=== PATIENT | female | born 1975 | race Caucasian/White ===

== ENCOUNTER → 2020-11-07 17:52 | Outpatient (CLI) | payer MEDICARE, MEDICAID, SELFPAY ==
[2020-11-07 18:31] LABS: Basophils % 0.3 % (0.1-2.0); Eosinophils # 0.2 K/mm3 (0.0-0.4); Hematocrit 39.3 % (37.0-47.0); Hemoglobin 12.5 g/dL (12.2-16.2); Lymphocytes # 2.1 K/mm3 (0.7-4.5); Lymphocytes % 21.1 % (10-50); Mean Corpuscular HGB Conc 31.8 g/dL (31.8-35.4); Mean Corpuscular Hemoglobin 28.3 pg (27.0-31.2); Mean Corpuscular Volume 88.8 fl (81-99); Mean Platelet Volume 9.8 fl (7.4-10.4); Monocytes # 0.3 K/mm3 (0.1-1.0); Monocytes % 3.2 % (1.7-9.3); Neutrophils # 7.3 K/mm3 (1.8-7.8); Neutrophils % 73.3 % (37.0-80.0); Platelet Count 301 K/mm3 (142-424); Red Blood Count 4.43 M/mm3 (4.20-5.40); Red Cell Distribution Width 14.1 % (11.5-17.5); White Blood Count 9.9 K/mm3 (4.8-10.8)
[2020-11-07 18:56] LABS: Alanine Aminotransferase 24 U/L (12-78); Albumin/Globulin Ratio 1.4 (1.1-1.8); Alkaline Phosphatase 99 U/L (38-126); Anion Gap 15.6 mEq/L (5-15); Aspartate Amino Transferase 27 U/L (14-36); Bilirubin,Total 0.5 mg/dl (0.2-1.3); Blood Urea Nitrogen 25 mg/dl (7-17); Calcium 9.2 mg/dl (8.4-10.2); Carbon Dioxide 27 mmol/L (22.0-30.0); Chloride 97 mmol/L (98-107); Chol/HDL Ratio 4.5 (1-3.5); Cholesterol 207 mg/dl (140-200); Estimated Glomerular Filt Rate 68 ml/min (>60); GFR (African American) 82 ML/MIN (>60); Globulin 2.8 g/dL (1.3-3.2); Glucose 377 mg/dl (74-100); HDL Cholesterol 46 mg/dl (40-60); Potassium 4.6 mmoL/L (3.5-5.1); Sodium 135 mmol/L (136-145); Total Protein,Serum 6.8 g/dl (6.3-8.2); Triglycerides 263 mg/dl (30-150); VLDL Cholesterol 53 mg/dL (0-40)
[2020-11-07 19:07] LABS: Direct LDL Cholesterol 119.84 mg/dL (100-129)
[2020-11-07 19:09] LABS: Hemoglobin A1C 11.4 % (4.0-6.0)
[2020-11-07 19:26] LABS: Thyroid Stimulating Hormone 1.81 uIU/mL (0.465-4.68)
== END ==
PROVIDERS: Visit Provider Family Medicine
DX: E11.9 Type 2 diabetes mellitus without complications (principal); Z79.84 Long term (current) use of oral hypoglycemic drugs
CPT/HCPCS: 80053; 80061; 83036; 84439; 84443; 85025

== ENCOUNTER → 2020-11-18 13:17 | Outpatient (CLI) | payer MEDICARE, MEDICAID, SELFPAY ==
--- NOTE | 2020-11-18 13:17 | MM_ITS ---
PROCEDURE INFORMATION: Exam: MG Screening 3D Mammography Exam date and time: 11/18/2020 1:17 PM Age: 45 years old Clinical indication: Encounter for screening mammogram for malignant neoplasm of breast TECHNIQUE: Imaging protocol: Screening tomosynthesis and 2D mammography including computer-aided detection (CAD) when performed. COMPARISON: No relevant prior studies available. FINDINGS: MAMMOGRAPHY: Breast composition: The breast tissue is composed of scattered areas of fibroglandular density. Mass: None. Architectural distortion: None. Calcifications: No suspicious calcifications. Asymmetric density: None. Skin thickening: None. Axillary adenopathy: None. IMPRESSION: No mammographic evidence of malignancy. Annual screening is recommended unless otherwise clinically indicated. ASSESSMENT: BI-RADS Category 1: Negative
== END ==
PROVIDERS: PCP Family Medicine; Visit Provider Family Medicine
DX: Z12.31 Encounter for screening mammogram for malignant neoplasm of breast (principal)
CPT/HCPCS: 77063; 77067

== ENCOUNTER → 2021-01-28 17:58 | Outpatient (CLI) | payer MEDICARE, MEDICAID, SELFPAY ==
[2021-01-30 13:42] LABS: C-Peptide 6.5 ng/mL (1.1-4.4)
== END ==
PROVIDERS: Visit Provider Family Medicine
DX: E11.40 Type 2 diabetes mellitus with diabetic neuropathy, unspecified (principal); Z79.4 Long term (current) use of insulin
CPT/HCPCS: 83036; 84681

== ENCOUNTER → 2022-08-31 13:15 | Outpatient (CLI) | payer MEDICARE, MEDICAID, SELFPAY ==
[2022-08-31 18:15] LABS: Basophils % 0.4 % (0.1-2.0); Eosinophils # 0.2 K/mm3 (0.0-0.4); Eosinophils % 2.4 % (0.1-12.0); Hematocrit 41.4 % (37.0-47.0); Hemoglobin 13.1 g/dL (12.2-16.2); Lymphocytes # 2.2 K/mm3 (0.7-4.5); Lymphocytes % 23.7 % (10-50); Mean Corpuscular HGB Conc 31.7 g/dL (31.8-35.4); Mean Corpuscular Hemoglobin 29.4 pg (27.0-31.2); Mean Corpuscular Volume 92.9 fl (81-99); Mean Platelet Volume 10.5 fl (7.4-10.4); Monocytes # 0.4 K/mm3 (0.1-1.0); Monocytes % 4.5 % (1.7-9.3); Neutrophils # 6.5 K/mm3 (1.8-7.8); Neutrophils % 69.1 % (37.0-80.0); Platelet Count 254 K/mm3 (142-424); Red Blood Count 4.46 M/mm3 (4.20-5.40); Red Cell Distribution Width 13.1 % (11.5-17.5); White Blood Count 9.4 K/mm3 (4.8-10.8)
[2022-08-31 18:18] LABS: Hemoglobin A1C 12.2 % (4.0-6.0)
[2022-08-31 18:22] LABS: Alanine Aminotransferase 16 U/L (12-78); Albumin Level 3.6 g/dl (3.5-5.0); Albumin/Globulin Ratio 1.2 (1.1-1.8); Alkaline Phosphatase 78 U/L (38-126); Anion Gap 9.6 mEq/L (5-15); Aspartate Amino Transferase 20 U/L (14-36); Bilirubin,Total 0.4 mg/dl (0.2-1.3); Blood Urea Nitrogen 26 mg/dl (7-17); Calcium 8.6 mg/dl (8.4-10.2); Carbon Dioxide 27 mmol/L (22.0-30.0); Chloride 100 mmol/L (98-107); Chol/HDL Ratio 3.8 (1-3.5); Cholesterol 147 mg/dl (140-200); Estimated Glomerular Filt Rate 53 ml/min (>60); GFR (African American) 64 ML/MIN (>60); Globulin 2.9 g/dL (1.3-3.2); Glucose 136 mg/dl (74-100); HDL Cholesterol 39 mg/dl (40-60); Potassium 3.6 mmoL/L (3.5-5.1); Sodium 133 mmol/L (136-145); Total Protein,Serum 6.5 g/dl (6.3-8.2); Triglycerides 275 mg/dl (30-150); VLDL Cholesterol 55 mg/dL (0-40)
[2022-08-31 18:33] LABS: Direct LDL Cholesterol 76.22 mg/dL (100-129)
[2022-08-31 18:51] LABS: Thyroid Stimulating Hormone 2.35 uIU/mL (0.465-4.68)
== END ==
PROVIDERS: PCP Family Medicine; Visit Provider Family Medicine
DX: E78.5 Hyperlipidemia, unspecified (principal); E11.40 Type 2 diabetes mellitus with diabetic neuropathy, unspecified; M25.511 Pain in right shoulder; M25.512 Pain in left shoulder; Z79.84 Long term (current) use of oral hypoglycemic drugs; Z79.899 Other long term (current) drug therapy
CPT/HCPCS: 80053; 80061; 83036; 84443; 85025

== ENCOUNTER 2023-08-11 18:57 | Outpatient (CLI) | payer MEDICARE, SELFPAY ==
[2023-08-11 18:44] LABS: Albumin Level 3.8 g/dl (3.5-5.0); Albumin/Globulin Ratio 1.5 (1.1-1.8); Alkaline Phosphatase 75 U/L (38-126); Anion Gap 12.9 mEq/L (5-15); Bilirubin,Total 0.2 mg/dl (0.2-1.3); Blood Urea Nitrogen 43 mg/dl (7-17); Calcium 9.4 mg/dl (8.4-10.2); Carbon Dioxide 29 mmol/L (22.0-30.0); Chloride 101 mmol/L (98-107); Chol/HDL Ratio 5.2 (1-3.5); Cholesterol 181 mg/dl (140-200); Estimated Glomerular Filt Rate 44 ml/min (>60); GFR (African American) 53 ML/MIN (>60); Globulin 2.6 g/dL (1.3-3.2); Glucose 118 mg/dl (74-100); HDL Cholesterol 35 mg/dl (40-60); Potassium 3.9 mmoL/L (3.5-5.1); Sodium 139 mmol/L (136-145); Total Protein,Serum 6.4 g/dl (6.3-8.2); Triglycerides 282 mg/dl (30-150); VLDL Cholesterol 56 mg/dL (0-40)
[2023-08-11 18:55] LABS: Direct LDL Cholesterol 90.02 mg/dL (100-129)
[2023-08-11 19:14] LABS: Thyroid Stimulating Hormone 1.97 uIU/mL (0.465-4.68)
[2023-08-11 19:26] LABS: Alanine Aminotransferase 24 U/L (12-78); Aspartate Amino Transferase 35 U/L (14-36)
[2023-08-11 20:31] LABS: Hemoglobin A1C 9.4 % (4.0-6.0)
== END 2023-08-11 23:59 ==
LOC: LAB.DROPOF 18:57
PROVIDERS: PCP Family Medicine; Visit Provider Family Medicine
DX: E11.40 Type 2 diabetes mellitus with diabetic neuropathy, unspecified; F32.A Depression, unspecified; Z79.899 Other long term (current) drug therapy
CPT/HCPCS: 80053; 80061; 83036; 84443

== ENCOUNTER 2023-12-13 11:48 | Outpatient (CLI) | payer MEDICARE, SELFPAY ==
[2023-12-13 19:28] LABS: Basophils # 0.1 K/mm3 (0-0.2); Basophils % 0.5 % (0.1-2.0); Eosinophils # 0.3 K/mm3 (0.0-0.4); Eosinophils % 2.9 % (0.1-12.0); Hematocrit 40.9 % (37.0-47.0); Hemoglobin 12.6 g/dL (12.2-16.2); Lymphocytes % 20.9 % (10-50); Mean Corpuscular HGB Conc 30.7 g/dL (31.8-35.4); Mean Corpuscular Hemoglobin 27.9 pg (27.0-31.2); Mean Corpuscular Volume 90.8 fl (81-99); Mean Platelet Volume 10.9 fl (7.4-10.4); Monocytes # 0.4 K/mm3 (0.1-1.0); Monocytes % 4.5 % (1.7-9.3); Neutrophils # 6.8 K/mm3 (1.8-7.8); Neutrophils % 71.1 % (37.0-80.0); Platelet Count 252 K/mm3 (142-424); Red Blood Count 4.51 M/mm3 (4.20-5.40); Red Cell Distribution Width 14.7 % (11.5-17.5); White Blood Count 9.5 K/mm3 (4.8-10.8)
[2023-12-13 19:38] LABS: Alanine Aminotransferase 18 U/L (12-78); Albumin Level 3.5 g/dl (3.5-5.0); Albumin/Globulin Ratio 1.3 (1.1-1.8); Alkaline Phosphatase 131 U/L (38-126); Anion Gap 14.6 mEq/L (5-15); Aspartate Amino Transferase 20 U/L (14-36); Bilirubin,Total 0.3 mg/dl (0.2-1.3); Blood Urea Nitrogen 29 mg/dl (7-17); Calcium 9.1 mg/dl (8.4-10.2); Carbon Dioxide 25 mmol/L (22.0-30.0); Chloride 103 mmol/L (98-107); Chol/HDL Ratio 4.8 (1-3.5); Cholesterol 190 mg/dl (140-200); Estimated Glomerular Filt Rate 24 ml/min (>60); GFR (African American) 29 ML/MIN (>60); Globulin 2.7 g/dL (1.3-3.2); Glucose 199 mg/dl (74-100); HDL Cholesterol 40 mg/dl (40-60); Potassium 4.6 mmoL/L (3.5-5.1); Sodium 138 mmol/L (136-145); Total Protein,Serum 6.2 g/dl (6.3-8.2); Triglycerides 280 mg/dl (30-150); VLDL Cholesterol 56 mg/dL (0-40)
[2023-12-13 19:48] LABS: Direct LDL Cholesterol 85.06 mg/dL (100-129)
[2023-12-13 20:11] LABS: Hemoglobin A1C 8.9 % (4.0-6.0)
[2023-12-13 20:20] LABS: Thyroid Stimulating Hormone 1.28 uIU/mL (0.465-4.68)
== END 2023-12-13 23:59 | disposition home or self-care (01) ==
LOC: LAB.DROPOF 12-14 11:49
PROVIDERS: PCP Family Medicine; Visit Provider Family Medicine
DX: E11.40 Type 2 diabetes mellitus with diabetic neuropathy, unspecified (principal)
CPT/HCPCS: 80050; 80053; 80061; 83036; 84443; 85025

== ENCOUNTER 2024-01-12 16:30 | Outpatient (CLI) | payer MEDICARE, SELFPAY ==
[2024-01-12 19:37] LABS: Alanine Aminotransferase 20 U/L (12-78); Albumin Level 3.9 g/dl (3.5-5.0); Albumin/Globulin Ratio 1.2 (1.1-1.8); Alkaline Phosphatase 147 U/L (38-126); Anion Gap 10.6 mEq/L (5-15); Aspartate Amino Transferase 24 U/L (14-36); Bilirubin,Total 0.5 mg/dl (0.2-1.3); Blood Urea Nitrogen 22 mg/dl (7-17); Calcium 9.5 mg/dl (8.4-10.2); Carbon Dioxide 29 mmol/L (22.0-30.0); Chloride 104 mmol/L (98-107); Estimated Glomerular Filt Rate 67 ml/min (>60); GFR (African American) 81 ML/MIN (>60); Globulin 3.3 g/dL (1.3-3.2); Glucose 194 mg/dl (74-100); Potassium 4.6 mmoL/L (3.5-5.1); Sodium 139 mmol/L (136-145); Total Protein,Serum 7.2 g/dl (6.3-8.2)
== END 2024-01-12 23:59 | disposition home or self-care (01) ==
LOC: LAB.DROPOF 01-13 12:51
PROVIDERS: PCP Family Medicine; Visit Provider Family Medicine
DX: E11.9 Type 2 diabetes mellitus without complications (principal); E11.40 Type 2 diabetes mellitus with diabetic neuropathy, unspecified; G62.9 Polyneuropathy, unspecified; E78.5 Hyperlipidemia, unspecified
CPT/HCPCS: 80053; 83036

== ENCOUNTER 2024-02-14 12:01 | Outpatient (CLI) | payer MEDICARE, MEDICAID, SELFPAY ==
--- NOTE | 2024-02-14 | CA_ITS ---
APPROVED REPORT Exam: Pharmacologic Technologist: Marilyn Davis Ht: 5 ft 5 in Wt: 248 lbs BSA: 2.17 m2 HR: 75 bpm BP: 144/68 mmHg Indications: ischemia, Chest pain, Abnormal EKG Medical History Medications: Atorvastatin,,,,, Metoprolol Succinate,,,,, Lyrica,,,,, HCTZ,,,,, Glipizide,,,,, Plavix,,,,, DulOXETINE,,,,, Janumet,,,,, BuPROPION,,,,, Hydrocodone-Acetaminophen,,,,, Mounjaro,,,,, Latrel,,,,, Stress Test Details Test: LEXISCAN HR Resting HR: 75 bpm Max Heart Rate (APMHR): 172 bpm Max HR Achieved: 87 bpm Target HR (85% APMHR): 146 bpm % of APMHR: 51 Recovery HR: 82 bpm BP Resting BP: 144.0/68.0 mmHg Max BP: 144.0/68.0 mmHg Recovery BP: 140.0/67.0 mmHg ECG Resting ECG: NSR, T-wave changes at baseli Stress ECG: No significant ST changesne Arrhythmia: None Clinical Exercise duration: 04:01 min Highest Stage Achieved: Exercise capacity: 1.0 METs Stress ECG Conclusion Symptoms: Shortness of air, chest tightness Arrhythmias/Ectopy: None ST-T Changes: No significant ST changes Conclusion: Unremarkable Lexiscan stress test. Myoview images reported separately. Test Summary REST . . . . . . . Resting REST 11:36 . . 75 . 144/ 68 . . Stage 1 . . . . . . . Myoview Injected Stage 1 . . . . . . . chest tightness Stage 1 01:00 . . 85 . . . . Stage 2 01:00 . . 82 . 142/ 66 . . Stage 3 01:00 . . 83 . 142/ 65 . . Stage 4 01:00 . . 82 . 138/ 65 . . Stage 4 01:01 . . 81 . 138/ 65 . Stop exercise at 04:01 RECOVERY 01:00 . . 80 . . . . RECOVERY 02:00 . . 80 . 139/ 67 . . RECOVERY 02:24 . . 82 . 140/ 67 . . Electronically signed by : Nichelle Loomis MD 02/15/2024 00:51:42
--- NOTE | 2024-02-14 12:05 | NM_ITS ---
APPROVED REPORT Exam: Nuclear Stress Test Indication: chest pain..soa Patient Location: Outpatient Stress Tech: Marilyn Davis NM Tech:Belinda Murray, GARETHT, RT (R)(N) Ht: 5 ft 5 in Wt: 240 lbs Bra Size: 42ddd HR: 75 bpm BP: 144/68 mmHg BSA: 2.14 m2 Rhythm: NSR TID: 1.08 BMI: 39.9 History: chest pain..soa Procedure: Patient received 0.4 mg of intravenous Lexiscan, resting heart rate 75 bpm, resting blood pressure 144/68 mmHg, with Lexiscan maximum heart rate achieved was 87 bpm which is 85 % of the maximum predicted heart rate and blood pressure was 144/68 mmHg. With Lexiscan, patient denied any complaint of chest pain. The patient was not able to lay on her abdomen for prone images. Cardiac Stress and Resting SPECT Images: Cardiac Stress and Resting SPECT images were obtained using technetium 99m Myoview 30.0 mCi stress and 10.76 mCi at rest. Technically difficult study due to significant soft tissue overlap with the cardiac borders. The patient is unable to lie on her abdomen. Therefore, prone stress imaging could not be performed. This may affect the diagnostic interpretation of the study findings. Resting and stress imaging in supine positions demonstrate medium sized, moderate, predominantly fixed perfusion defect in the basal to mid anterior LV patrick. There is a small region of reversibility towards the anteroapical region. Gated imaging demonstrates low-normal global and regional LV systolic function. LVEF is calculated at 50%. Conclusion: Technically difficult study. Medium sized, moderate, predominantly fixed perfusion defect in the basal to mid anterior LV patrick. There is a small region of reversibility towards the anteroapical region. Findings are suggestive of partial reversible ischemia. Gated imaging demonstrates low-normal global and regional LV systolic function. LVEF is calculated at 50%. In the setting of young age and technically difficult study, further evaluation may be suggested with non-invasive testing (i.e. CCTA) first prior to proceeding with invasive coronary angiography Electronically signed by : Nichelle Loomis MD 02/15/2024 00:55:27
[2024-02-14] MEDS: SODIUM CHLORIDE 0.9% 10ML SYR (RAD ONLY) 10 ML IV ×2 (14:39)
[2024-02-14] MEDS: ISOTOPE MYOVIEW (PER STUDY) 1 DOSE IV (14:39)
[2024-02-14] MEDS: REGADENOSON 0.4MG/5ML SYRINGE 0.4 MG IV (14:39)
== END 2024-02-14 23:59 | disposition home or self-care (01) ==
LOC: RAD 12:03
PROVIDERS: PCP Family Medicine; Visit Provider Nurse Practitioner Family
DX: R07.89 Other chest pain (principal); R06.00 Dyspnea, unspecified; I50.9 Heart failure, unspecified
CPT/HCPCS: 78452; 93017; 93018; A9502; J2785

== ENCOUNTER 2024-09-18 15:58 | Outpatient (CLI) | payer MEDICARE, MEDICAID, SELFPAY ==
[2024-09-18 19:17] LABS: Creatinine,Urine Random 40 mg/dL (Not Estab.); Microalbumin/Creatinine Ratio 1010.5
[2024-09-18 19:33] LABS: Chloride 109 mmol/L (98-107); Potassium 4.7 mmoL/L (3.5-5.1); Sodium 139 mmol/L (136-145)
[2024-09-18 19:35] LABS: Blood Urea Nitrogen 23 mg/dl (7-17); Estimated Glomerular Filt Rate 53 ml/min (>60); GFR (African American) 64 ML/MIN (>60)
[2024-09-18 19:36] LABS: Alanine Aminotransferase 16 U/L (12-78); Alkaline Phosphatase 126 U/L (38-126); Anion Gap 11.7 mEq/L (5-15); Aspartate Amino Transferase 21 U/L (14-36); Bilirubin,Total 0.2 mg/dl (0.2-1.3); Calcium 9.3 mg/dl (8.4-10.2); Carbon Dioxide 23 mmol/L (22.0-30.0); Cholesterol 199 mg/dl (140-200); Glucose 115 mg/dl (74-100); Total Protein,Serum 6.7 g/dl (6.3-8.2); Triglycerides 232 mg/dl (30-150); VLDL Cholesterol 46 mg/dL (0-40)
[2024-09-18 19:37] LABS: Chol/HDL Ratio 4.2 (1-3.5); HDL Cholesterol 47 mg/dl (40-60)
[2024-09-18 19:47] LABS: Direct LDL Cholesterol 102.31 mg/dL (100-129)
[2024-09-18 20:01] LABS: 25-OH Vitamin D, Total < 12.8 ng/mL (30-100)
[2024-09-18 20:07] LABS: Thyroid Stimulating Hormone 1.22 uIU/mL (0.465-4.68)
[2024-09-18 21:21] LABS: Albumin Level 3.9 g/dl (3.5-5.0); Albumin/Globulin Ratio 1.4 (1.1-1.8); Globulin 2.8 g/dL (1.3-3.2)
== END 2024-09-18 23:59 | disposition home or self-care (01) ==
LOC: LAB.DROPOF 09-19 11:08
PROVIDERS: PCP Family Medicine; Visit Provider Family Medicine
DX: E55.9 Vitamin D deficiency, unspecified (principal); E11.40 Type 2 diabetes mellitus with diabetic neuropathy, unspecified; Z79.84 Long term (current) use of oral hypoglycemic drugs; E78.5 Hyperlipidemia, unspecified
CPT/HCPCS: 80053; 80061; 82043; 82306; 82570; 84443

== ENCOUNTER 2025-05-09 09:00 | Outpatient (CLI) | payer MEDICARE, MEDICAID, SELFPAY ==
--- OUTSIDE RECORDS SUMMARY | 2021-07-08 05:00 | XMS_ITS | Encounter Summary ---
Author Organization [place] [address] Care Team Providers Care Software Support Analyst Name Role Phone Lakshmi Hinton MD Primary Care Provider [phone] Encounter Details Date Type Department Care Team (Late st Contact Info) Description 07/08/2021 5:00 AM [facility] Encounter [facility] Referral Lab 1 [place], [place] [id number] Hitesh Curtis MD Social History Tobacco Use Types Packs/Day Years Used Date Smoking Tobacco: Never Passive Smoke Exposure: Current Smokeless Tobacco: Never Comments:AROUND SECOND HAND SMOKE Alcohol Use Standard Drinks/Week Comments No 0 (1 standard drink = 0.6 oz pur e alcohol) [facility] Utilities Answer Date Recorded In the past 12 months has [employer], gas, oil, or water [employer] threatened to shut off services in your home? No 11/14/2024 Overall Financial Resource Strain (CARDIA) Answe r Date Recorded How hard is it for you to pa y for the very basics like food, housing, medical care, and heating? Not very hard 11/14/2024 PHQ-2 Answer Date Recorded PHQ-2 Total Score 0 11/14/2024 [facility] [place] of Occupat ional Health - Occupational Stress Questionnaire Answer Date Recorded Do you feel stress - tense, restless, nervous, or anxious, or unable to sleep at night because your mind is troubled all the time - these days? Only a little 11/14/2024 Exercise Vital Sign Answer Date Recorde d On average, how many days pe r week do you engage in moderate to strenuous exercise (like a brisk walk)? 0 days 11/14/2024 On average, how many minutes do you engage in exercise at this level? 0 min 11/14/2024 Hunger Vital Sign Answer Date Recorded Within the past 12 months, y ou worried that your food would run out before you got the money to buy more. Never true 11/15/19 25 Within the past 12 months, t he food you bought just didn't last and you didn't have money to get more. Never true 11/14/2024 PRAPARE - Transportation Answer Date Re corded In the past 12 months, has l ack of transportation kept you from medical appointments or from getting medications? No 05/25 In the past 12 months, has l ack of transportation kept you from meetings, work, or from getting things needed for daily living? No 06/19/2021 [facility] IP Transportation Answer D ate Recorded In the past 12 months, has l ack of reliable transportation kept you from medical appointments, meetings, work or from getting things needed for daily living? No 11/14/2024 Sexually Active Control Partners Comments Yes Male Comments No Sex and Gender Information Value Date Recorded Sex Assigned at Not on file Legal Sex Female 8:43 PM EDT Gender Identity Not on file Sexual Orientation Not on file COVID-19 Exposure Response Date Recorded In the last month, have you been in contact with someone who was confirmed or suspected to have Coronavirus / COVID-19? No / Unsure 08/14/2021 1:52 PM EDT documented as of this encounter Functional Status * Question Answer Date of Assessment Author Is the person deaf or does he/she have serious difficulty hearing? No 11/14/2024 5:08 PM EDT Mary Stern RN Is the person blind or does he/she have serious difficulty seeing even when wearing glasses? No 11/14/2024 5:08 PM EDT Mary Stern RN Does this person have seriou s difficulty walking or climbing stairs? No 11/14/2024 5:08 PM EDT Mary Stern RN Does this person have difficulty dressing or bathing? No 11/14/2024 5:08 PM Mary Medina RN * Is the person deaf or does he/she have serious difficulty hearing? Answer Date of Assessment Author No 06/21/2016 12:09 PM Joelel Hargrove RN * Is the person blind or does he/she have serious difficulty seeing even when wearing glasses? Answer Date of Assessment Author No 06/21/2016 12:09 PM Joelle Hargrove RN * Does this person have serious difficulty walking or climbing stairs? Answer Date of Assessment Author No 06/21/2016 12:09 PM Joelle Hargrove RN * Does this person have difficulty dressing or bathing? Answer Date of Assessment Author No 06/21/2016 12:09 PM Joelle Hargrove RN * Because of a physical, mental or emotional condition, does this person have difficulty doing errands alone such as visiting a doctor's office or shopping? Answer Date of Assessment Author No 06/21/2016 12:09 PM Joelle Hargrove RN * Question Answer Date of Assessment Author Little interest or pleasure in doing things 0 11/14/2024 10:10 AM Romana Velasco RN Feeling down, depressed, or hopeless 0 11/14/2024 10:10 AM Romana Velasco RN PHQ-2 Total Score 0 11/14/2024 10:10 AM Romana Velasco RN Trouble falling or staying asleep, or sleeping too much 3 07/20/2023 10:40 AM Marlyn Sutton RN Feeling tired or having alfredo le energy 3 07/20/2023 10:40 AM Marlyn Sutton RN Poor appetite or overeating 3 07/20/2023 10 :40 AM Marlyn Sutton RN Feeling bad about yourself - or that you are a failure or have let yourself or your family down 1 07/20/2023 10:40 AM Marlyn Sutton RN Trouble concentrating on things, such as reading the newspaper or watching television 0 07/20/2023 10:40 AM Marlyn Sutton RN Moving or speaking so slowly that other people could have noticed. Or the opposite - being so fidgety or restless that you have been moving around a lot more than usual 0 07/20/2023 10:40 AM EST Marlyn Callahan RN Thoughts that you would be better off , or of hurting yourself in some way 0 07/20/2023 10:40 AM EST Marlyn Callahan RN * PHQ-9 Total Score Answer Date of Assessment Author 0 11/14/2024 10:10 AM EDT Romana Domínguez RN * PHQ-2 Total Score Answer Date of Assessment Author 0 11/14/2024 10:10 AM EDT Romana Domínguez RN documented as of this encounter Mental Status * Question Answer Entry Date Author Because of a physical, menta l or emotional condition, does this person have difficulty doing errands alone such as visiting a doctor's office or shopping? No 11/14/2024 5:08 PM EDT Mary Stern RN Because of a physical, menta l or emotional condition, does this person have serious difficulty concentrating, remembering or making decisions? No 11/14/2024 5:08 PM EDT Mary Stern RN * Because of a physical, mental or emotional condition, does this person have serious difficulty concentrating, remembering or making decisions? Answer Entry Date Author No 06/21/2016 12:09 PM EST Joelle Lawton RN documented in this encounter Plan of Treatment Upcoming Encounters Date Type Department Care Team (Late st Contact Info) Description 02/11/2026 2:15 PM EDT Office Visit [facility] [place] [address] [address] Dwayne Payan MD [address] [place] [address] documented as of this encounter Results * (ABNORMAL) CBC WITH DIFF (07/08/2021 5:00 AM EST) [facility] WBC 6.7 3.7 - 10.3 x10(3)/mcL 07/08/2021 8:44 AM EST [facility] RBC 3.02(L) 3.90 - 5.20 x10(6)/mcL 07/08/2021 8:44 AM EST [facility] Hgb 8.4(L) 11.2 - 15.7 g/dL 07/08/2021 8:44 AM EST [facility] Hct 27.5(L) 34.0 - 45.0 % 07/08/2021 8:44 AM EST [facility] MCV 91.1 80.0 - 100.0 fL 07/08/2021 8:44 AM EST [facility] MCH 27.8 26.0 - 34.0 pg 07/08/2021 8:44 AM EST [facility] MCHC 30.5(L) 30.7 - 35.5 g/dL 07/08/2021 8:44 AM EST [facility] RDW 14.8 <=14.9 % 07/08/2021 8:44 AM EST [facility] Platelet 429(H) 155 - 369 x10(3)/[facility] 07/08/2021 8:44 AM EST [facility] MPV 9.9 8.8 - 12.5 fL 07/08/2021 8:44 AM EST [facility] Neut Percent 58.0 % 07/08/2021 8:44 AM EST [facility] Comment:Neutrophils equals s egs plus bands Imm Gran% 0.3 % 07/08/2021 8:44 AM EST [facility] Comment:Automated count of m etamyelocytes, myelocytes and promyelocytes. Lymph Percent 31.6 % 07/08/2021 8:44 AM EST [facility] [place] Percent 6.4 % 07/08/2021 8:44 AM EST [facility] Eos Percent 3.1 % 07/08/2021 8:44 AM EST [facility] Baso Percent 0.6 % 07/08/2021 8:44 AM EST [facility] Neut # 3.9 1.6 - 6.1 x10(3)/mcL 07/08/2021 8:44 AM EST [facility] Comment:Neutrophils equals s egs plus bands IMMGRAN# 0.0 0.0 - 0.1 x10(3)/mcL 07/08/2021 8:44 AM EST [facility] Comment:Automated count of m etamyelocytes, myelocytes and promyelocytes. An absolute IG <0.1 is reported as 0.0. Lymph # 2.1 1.2 - 3.9 x10(3)/[facility] 07/08/2021 8:44 AM EST [facility] [place] # 0.4 0.3 - 0.9 x10(3)/[facility] 07/08/2021 8:44 AM EST [facility] Eos# 0.2 0.0 - 0.5 x10(3)/[facility] 07/08/2021 8:44 AM EST [facility] Baso # 0.0 0.0 - 0.1 x10(3)/[facility] 07/08/2021 8:44 AM EST [facility] Blood Venipuncture / Unknown 07/08/2021 5:00 AM EST 07/08/2021 7:36 AM EST Hitesh Curtis MD HEMATOLOGY ORDERABLES Jennifer l Result [facility] [address] [facility] , [place] [address] documented in this encounter Visit Diagnoses Not on filedocumented in this encounter Additional Health Concerns Infection Onset Date Last Indicated Resolved Time R/O COVID-19 07/06/2024 07/06/2024 07/06/2024 8:58 PM EST R/O COVID-19 07/27/2024 07/27/2024 07/27/2024 1:21 PM EST documented as of this encounter Care Teams Software Support Analyst Relationship Specialty Start Date End Date Lakshmi Hinton MD [address] [place] [address] PCP - General Family Medicine 06/03/16 documented as of this encounter
--- OUTSIDE RECORDS SUMMARY | 2021-07-08 05:00 | XMS_ITS | Encounter Summary ---
Author Organization [place] [address] Care Team Providers Care Test Clerk Name Role Phone Lakshmi Hinton MD Primary Care Provider [phone] Encounter Details Date Type Department Care Team (Late st Contact Info) Description 07/08/2021 5:00 AM [facility] Hospital Encounter [facility] Referral Lab 1 [place], [place] [id number] Hitesh Curtis MD Social History Tobacco Use Types Packs/Day Years Used Date Smoking Tobacco: Never Passive Smoke Exposure: Current Smokeless Tobacco: Never Comments:AROUND SECOND HAND SMOKE Alcohol Use Standard Drinks/Week Comments No 0 (1 standard drink = 0.6 oz pur e alcohol) [facility] Utilities Answer Date Recorded In the past 12 months has [email or web address], gas, oil, or water [employer] threatened to shut off services in your home? No 11/14/2024 Overall Financial Resource Strain (CARDIA) Answe r Date Recorded How hard is it for you to pa y for the very basics like food, housing, medical care, and heating? Not very hard 11/14/2024 PHQ-2 Answer Date Recorded PHQ-2 Total Score 0 11/14/2024 [facility] [place] of Occupat ional Health - Occupational Stress [...] things needed for daily living? No 06/19/2021 [facility] IP Transportation Answer D ate Recorded In [...] 06/21/2016 12:09 PM Joelle Hargrove RN * Is the person blind [...] 2:15 PM EDT Office Visit [facility] [place] [address] [address] Dwayne Payan MD [address] [place] [address] documented as of this encounter Results * (ABNORMAL) HEMOGLOBIN A1C (07/08/2021 5:00 AM EST) [facility] Hgb A1C 8.0(H) 4.2 - 5.6 % 07/08/2021 9:12 AM EST [facility] Est. Avg Glucose 183 mg/dL 07/08/2021 9:12 AM EST [facility] Blood Venipuncture / Unknown 07/08/2021 5:00 AM EST 07/08/2021 7:36 AM EST Narrative [facility] [employer] [facility] - 07/08/2021 9:12 AM EST REFERENCE RANGE: Normal: 4.0-5.6% Pre-diabetes: 5.7-6.4% Provisional diagnosis of diabetes: >6.4% Hgb F>10% and anything which shortens red cell survival, such as hemolytic anemia, or unstable hemoglobin variants such as HbSS, HbSC, or HbCC, will lower the HbA1c value associated with a given level of glycemic control. us Hitesh Curtis MD CHEMISTRY ORDERABLES Final Result [facility] [address] [facility] , [place] [address] documented in this encounter Visit Diagnoses Not on filedocumented in this encounter Additional Health Concerns Infection Onset Date Last Indicated Resolved Time R/O COVID-19 07/06/2024 07/06/2024 07/06/2024 8:58 PM EST R/O COVID-19 07/27/2024 07/27/2024 07/27/2024 1:21 PM EST documented as of this encounter Care Teams Test Clerk Relationship Specialty Start Date End Date Lakshmi Hinton MD [address] [place] [address] PCP - General Family Medicine 06/03/16 documented as of this encounter
--- OUTSIDE RECORDS SUMMARY | 2021-07-08 05:00 | XMS_ITS | Encounter Summary ---
Author Organization [place] [address] Care Team Providers Care Conductor Pullman Name Role Phone Lakshmi Hinton MD Primary Care Provider [phone] Encounter Details Date Type Department Care Team (Late st Contact Info) Description 07/08/2021 5:00 AM [facility] Hospital Encounter [facility] Referral Lab 1 [place], [place] [id number] Hitesh Curtis MD Social History Tobacco Use Types Packs/Day Years Used Date Smoking Tobacco: Never Passive Smoke Exposure: Current Smokeless Tobacco: Never Comments:AROUND SECOND HAND SMOKE Alcohol Use Standard Drinks/Week Comments No 0 (1 standard drink = 0.6 oz pur e alcohol) [facility] Utilities Answer Date Recorded In the past 12 months has [employer], gas, oil, or water [employer] threatened to shut off services in your home? No 11/14/2024 Overall Financial Resource Strain (CARDIA) Answe r Date Recorded How hard is it for you to pa y for the very basics like food, housing, medical care, and heating? Not very hard 11/14/2024 PHQ-2 Answer Date Recorded PHQ-2 Total Score 0 11/14/2024 [facility] [place] of Occupat ional Health - Occupational Stress [...] things needed for daily living? No 06/19/2021 [facility] IP Transportation Answer D ate Recorded In [...] in doing things 0 11/14/2024 10:10 AM oRmana Velasco RN Feeling down, depressed, or hopeless [...] 2:15 PM EDT Office Visit [facility] [place] [address] [address] Dwayne Payan MD [address] [place] [address] documented as of this encounter Results * (ABNORMAL) PREALBUMIN (07/08/2021 5:00 AM EST) Prealbumin 15.4(L) 20.0 - 40.0 mg/dL 07/08/2021 9:12 AM EST [facility] [place] Blood Venipuncture / Unknown 07/08/2021 5:00 AM EST 07/08/2021 7:36 AM EST us Hitesh Curtis MD CHEMISTRY ORDERABLES Final Result [facility] [employer] [facility] [address] [facility] , [place] [address] documented in this encounter Visit Diagnoses Not on filedocumented in this encounter Additional Health Concerns Infection Onset Date Last Indicated Resolved Time R/O COVID-19 07/06/2024 07/06/2024 07/06/2024 8:58 PM EST R/O COVID-19 07/27/2024 07/27/2024 07/27/2024 1:21 PM EST documented as of this encounter Care Teams Conductor Pullman Relationship Specialty Start Date End Date Lakshmi Hinton MD [address] [place] [address] PCP - General Family Medicine 06/03/16 documented as of this encounter
--- OUTSIDE RECORDS SUMMARY | 2021-07-15 05:00 | XMS_ITS | Encounter Summary ---
Author Organization [place] [address] Care Team Providers Care Blankbook Forwarder Name Role Phone Lakshmi Hinton MD Primary Care Provider [phone] Encounter Details Date Type Department Care Team (Late st Contact Info) Description 07/15/2021 5:00 AM [facility] Hospital Encounter [facility] Referral Lab 1 [place], [place] [id number] Hitesh Curtis MD Social History Tobacco Use Types Packs/Day Years Used Date Smoking Tobacco: Never Passive Smoke Exposure: Current Smokeless Tobacco: Never Comments:AROUND SECOND HAND SMOKE Alcohol Use Standard Drinks/Week Comments No 0 (1 standard drink = 0.6 oz pur e alcohol) [facility] Utilities Answer Date Recorded In the past 12 months has [employer], gas, oil, or water [employer] threatened to shut off services in your home? No 11/14/2024 Overall Financial Resource Strain (CARDIA) Answe r Date Recorded How hard is it for you to pa y for the very basics like food, housing, medical care, and heating? Not very hard 11/14/2024 PHQ-2 Answer Date Recorded PHQ-2 Total Score 0 11/14/2024 [facility] [place] of Occupat ional Health - Occupational Stress [...] things needed for daily living? No 06/19/2021 [facility] IP Transportation Answer D ate Recorded In [...] 2:15 PM EDT Office Visit [facility] [place] [address] [address] Dwayne Payan MD [address] [place] [address] Scheduled Orders Name Type Priority Associated Diagnoses Orde r Schedule PREALBUMIN Lab Routine ONCE for 1 Occ urrences starting 07/15/2021 until 08/19/2021 documented as of this encounter Results * (ABNORMAL) PREALBUMIN (07/15/2021 5:10 AM EST) Prealbumin 18.4(L) 20.0 - 40.0 mg/dL 07/15/2021 6:42 AM EST [facility] Blood Venipuncture / Unknown 07/15/2021 5:10 AM EST 07/15/2021 6:02 AM EST us Hitesh Curtis MD CHEMISTRY ORDERABLES Final Result [facility] [employer] [address] [facility] , [place] [address] documented in this encounter Visit Diagnoses Not on filedocumented in this encounter Additional Health Concerns Infection Onset Date Last Indicated Resolved Time R/O COVID-19 07/06/2024 07/06/2024 07/06/2024 8:58 PM EST R/O COVID-19 07/27/2024 07/27/2024 07/27/2024 1:21 PM EST documented as of this encounter Care Teams Blankbook Forwarder Relationship Specialty Start Date End Date Lakshmi Hinton MD [address] [place] [address] PCP - General Family Medicine 06/03/16 documented as of this encounter
--- OUTSIDE RECORDS SUMMARY | 2021-07-15 05:00 | XMS_ITS | Encounter Summary ---
Author Organization [place] [address] Care Team Providers Care Manager Strategic Name Role Phone Lakshmi Hinton MD Primary Care Provider [phone] Encounter Details Date Type Department Care Team (Late st Contact Info) Description 07/15/2021 5:00 AM [facility] Hospital Encounter [facility] Referral Lab 1 [place], [place] [address] Hitesh Curtis MD Social History Tobacco Use Types Packs/Day Years Used Date Smoking Tobacco: Never Passive Smoke Exposure: Current Smokeless Tobacco: Never Comments:AROUND SECOND HAND SMOKE Alcohol Use Standard Drinks/Week Comments No 0 (1 standard drink = 0.6 oz pur e alcohol) [facility] Utilities Answer Date Recorded In the past 12 months has [employer], gas, oil, or water [employer] threatened to shut off services in your home? No 11/14/2024 Overall Financial Resource Strain (CARDIA) Answe r Date Recorded How hard is it for you to pa y for the very basics like food, housing, medical care, and heating? Not very hard 11/14/2024 PHQ-2 Answer Date Recorded PHQ-2 Total Score 0 11/14/2024 [facility] [place] of Occupat ional Health - Occupational Stress [...] things needed for daily living? No 06/19/2021 [facility] IP Transportation Answer D ate Recorded [...] more than usual 0 07/20/2023 10:40 AM Marlyn Sutton RN Thoughts that you would be better off , or of hurting yourself in some way 0 07/20/2023 10:40 AM Marlyn Sutton RN * PHQ-9 Total Score Answer Date [...] Entry Date Author No 06/21/2016 12:09 PM Joelle Hargrove RN documented in this encounter Plan of Treatment Upcoming Encounters Date Type Department Care Team (Late st Contact Info) Description 02/11/2026 2:15 PM EDT Office Visit [facility] [place] [address] [address] Dwayne Payan MD [address] [place] [address] Scheduled Orders Name Type Priority Associated Diagnoses Orde r Schedule COMPREHENSIVE METABOLIC PANEL Lab Routine ONCE for 1 Occur rences starting 07/15/2021 until 08/19/2021 COMPREHENSIVE METABOLIC PANEL Lab Routine ONCE for 1 Occur rences starting 07/15/2021 until 08/19/2021 documented as of this encounter Visit Diagnoses Not on filedocumented in this encounter Additional Health Concerns Infection Onset Date Last Indicated Resolved Time R/O COVID-19 07/06/2024 07/06/2024 07/06/2024 8:58 PM EST R/O COVID-19 07/27/2024 07/27/2024 07/27/2024 1:21 PM EST documented as of this encounter Care Teams Manager Strategic Relationship Specialty Start Date End Date Lakshmi Hinton MD [address] [place] [address] PCP - General Family Medicine 06/03/16 documented as of this encounter
--- OUTSIDE RECORDS SUMMARY | 2021-07-15 05:00 | XMS_ITS | Encounter Summary ---
Author Organization [place] [address] Care Team Providers Care Zipper Cutter Name Role Phone Lakshmi Hinton MD Primary Care Provider [phone] Encounter Details Date Type Department Care Team (Late st Contact Info) Description 07/15/2021 5:00 AM [facility] Hospital Encounter [facility] Referral Lab 1 [place], [place] [id number] Hitesh Curtis MD Social History Tobacco Use Types Packs/Day Years Used Date Smoking Tobacco: Never Passive Smoke Exposure: Current Smokeless Tobacco: Never Comments:AROUND SECOND HAND SMOKE Alcohol Use Standard Drinks/Week Comments No 0 (1 standard drink = 0.6 oz pur e alcohol) [facility] Utilities Answer Date Recorded In the past 12 months has [employer], gas, oil, or water [employer] threatened to shut off services in your home? No 11/14/2024 Overall Financial Resource Strain (CARDIA) Answe r Date Recorded How hard is it for you to pa y for the very basics like food, housing, medical care, and heating? Not very hard 11/14/2024 PHQ-2 Answer Date Recorded PHQ-2 Total Score 0 11/14/2024 [facility] [place] of Occupat ional Health - Occupational Stress [...] things needed for daily living? No 06/19/2021 [facility] IP Transportation Answer D ate Recorded [...] Assessment Author No 06/21/2016 12:09 PM Joelle aHrgrove RN * Does this person have serious [...] 2:15 PM EDT Office Visit [facility] [place] [address] [address] Dwayne Payan MD [address] [place] [address] Scheduled Orders Name Type Priority Associated Diagnoses Orde r Schedule CBC WITH DIFF Lab Routine ONCE for 1 Occurrences starting 07/15/2021 until 08/19/2021 CBC WITH DIFF Lab Routine ONCE for 1 Occurrences starting 07/15/2021 until 08/19/2021 documented as of this encounter Visit Diagnoses Not on filedocumented in this encounter Additional Health Concerns Infection Onset Date Last Indicated Resolved Time R/O COVID-19 07/06/2024 07/06/2024 07/06/2024 8:58 PM EST R/O COVID-19 07/27/2024 07/27/2024 07/27/2024 1:21 PM EST documented as of this encounter Care Teams Zipper Cutter Relationship Specialty Start Date End Date Lakshmi Hinton MD [address] [place] [address] PCP - General Family Medicine 06/03/16 documented as of this encounter
--- OUTSIDE RECORDS SUMMARY | 2021-11-21 04:00 | XMS_ITS | Encounter Summary ---
Author Organization [place] [address] Care Team Providers Care Apprenticeship Consultant Name Role Phone Lakshmi Hinton MD Primary Care Provider [phone] Encounter Details Date Type Department Care Team (Late st Contact Info) Description 11/21/2021 5:00 AM EDT Hospital Encounter SE Referral Lab 1 [place] [address] Lindy Byrne MD [address] [place] [address] Social History Tobacco Use Types Packs/Day Years Used Date Smoking Tobacco: Never Passive Smoke Exposure: Current Smokeless Tobacco: Never Comments:AROUND SECOND HAND SMOKE Alcohol Use Standard Drinks/Week Comments No 0 (1 standard drink = 0.6 oz pur e alcohol) [facility] Utilities Answer Date Recorded In the past 12 months has [employer] electric, gas, oil, or water [employer] threatened to shut off services in your home? No 11/14/2024 Overall Financial Resource Strain (CARDIA) Answe r Date Recorded How hard is it for you to pa y for the very basics like food, housing, medical care, and heating? Not very hard 11/14/2024 PHQ-2 Answer Date Recorded PHQ-2 Total Score 0 11/14/2024 [facility] of Occupat ional Health - Occupational Stress [...] things needed for daily living? No 06/19/2021 [facility] IP Transportation Answer D ate Recorded [...] on file Sexual Orientation Not on file documented as of this encounter Functional Status * Question Answer Date of Assessment Author Is the person deaf or does he/she have serious difficulty hearing? No 11/14/2024 5:08 PM Mary Medina RN Is the person blind or does he/she have serious difficulty seeing even when wearing glasses? No 11/14/2024 5:08 PM Mary Medina RN Does this person have seriou s difficulty walking or climbing stairs? No 11/14/2024 5:08 PM EDT Mary Stern RN Does this person have difficulty dressing or bathing? No 11/14/2024 5:08 PM EDT Mary Stern RN * Is the person deaf or [...] 2:15 PM EDT Office Visit [facility] [place] [address] [address] Dwayne Payan MD [address] [place] [address] Scheduled Orders Name Type Priority Associated Diagnoses Orde r Schedule HEMOGLOBIN A1C Lab Routine ONCE for 1 Occurrences starting 11/21/2021 until 12/26/2021 documented as of this encounter Results * (ABNORMAL) HEMOGLOBIN A1C (11/21/2021 5:27 AM EDT) Hgb A1C 5.8(H) 4.2 - 5.6 % 11/21/2021 8:30 AM EDT [facility] [employer] [facility]. Avg Glucose 120 mg/dL 11/21/2021 8:30 AM EDT [facility] Blood Venipuncture / Unknown 11/21/2021 5:27 AM EDT 11/21/2021 7:42 AM EDT Narrative [facility] - 11/21/2021 8:30 AM EDT REFERENCE RANGE: Normal: 4.0-5.6% Pre-diabetes: 5.7-6.4% Provisional diagnosis of diabetes: >6.4% Hgb F>10% and anything which shortens red cell survival, such as hemolytic anemia, or unstable hemoglobin variants such as HbSS, HbSC, or HbCC, will lower the HbA1c value associated with a given level of glycemic control. us Lindy Byrne MD CHEMISTRY ORDERABLES Final Result [facility] 1 [facility] , [place] [address] documented in this encounter Visit Diagnoses Not on filedocumented in this encounter Additional Health Concerns Infection Onset Date Last Indicated Resolved Time R/O COVID-19 07/06/2024 07/06/2024 07/06/2024 8:58 PM EST R/O COVID-19 07/27/2024 07/27/2024 07/27/2024 1:21 PM EST documented as of this encounter Care Teams Apprenticeship Consultant Relationship Specialty Start Date End Date Lakshmi Hinton MD [address] [place] [address] PCP - General Family Medicine 06/03/16 documented as of this encounter
--- OUTSIDE RECORDS SUMMARY | 2021-11-21 04:00 | XMS_ITS | Encounter Summary ---
Author Organization [place] [address] Care Team Providers Care Vb Net Programmer Name Role Phone Lakshmi Hinton MD Primary Care Provider [phone] Encounter Details Date Type Department Care Team (Late st Contact Info) Description 11/21/2021 5:00 AM EDT Hospital Encounter SE Referral Lab 1 [place] [address] Lindy Byrne MD [address] [place] [address] Social History Tobacco Use Types Packs/Day Years Used Date Smoking Tobacco: Never Passive Smoke Exposure: Current Smokeless Tobacco: Never Comments:AROUND SECOND HAND SMOKE Alcohol Use Standard Drinks/Week Comments No 0 (1 standard drink = 0.6 oz pur e alcohol) [facility] Utilities Answer Date Recorded In the past 12 months has [employer] electric, gas, oil, or water [employer] threatened to shut off services in your home? No 11/14/2024 Overall Financial Resource Strain (CARDIA) Answe r Date Recorded How hard is it for you to pa y for the very basics like food, housing, medical care, and heating? Not very hard 11/14/2024 PHQ-2 Answer Date Recorded PHQ-2 Total Score 0 11/14/2024 [facility] [employer] of Occupat ional Health - Occupational Stress [...] things needed for daily living? No 06/19/2021 [facility] IP Transportation Answer D ate Recorded In [...] 2:15 PM EDT Office Visit [facility] [place] [address] [address] Dwayne Payan MD [address] [place] [address] Scheduled Orders Name Type Priority Associated Diagnoses Orde r Schedule CBC WITH DIFF Lab Routine ONCE for 1 Occurrences starting 11/21/2021 until 12/26/2021 documented as of this encounter Results * (ABNORMAL) CBC WITH DIFF (11/21/2021 5:27 AM EDT) WBC 8.2 3.7 - 10.3 x10(3)/mcL 11/21/2021 8:02 AM EDT [facility] RBC 4.08 3.90 - 5.20 x10(6)/mcL 11/21/2021 8:02 AM EDT [facility] Hgb 10.7(L) 11.2 - 15.7 g/dL 11/21/2021 8:02 AM EDT [facility] Hct 35.1 34.0 - 45.0 % 11/21/2021 8:02 AM EDT [facility] MCV 86.0 80.0 - 100.0 fL 11/21/2021 8:02 AM EDT [facility] MCH 26.2 26.0 - 34.0 pg 11/21/2021 8:02 AM EDT [facility] MCHC 30.5(L) 30.7 - 35.5 g/dL 11/21/2021 8:02 AM EDT [facility] RDW 14.8 <=14.9 % 11/21/2021 8:02 AM EDT [facility] Platelet 211 155 - 369 x10(3)/mcL 11/21/2021 8:02 AM EDT [facility] MPV 12.2 8.8 - 12.5 fL 11/21/2021 8:02 AM EDT [facility] Neut Percent 59.6 % 11/21/2021 8:02 AM EDT [facility] Comment:Neutrophils equals s egs plus bands Imm Gran% 0.1 % 11/21/2021 8:02 AM EDT [facility] Comment:Automated count of m etamyelocytes, myelocytes and promyelocytes. Lymph Percent 32.1 % 11/21/2021 8:02 AM EDT [facility] [place] Percent 5.1 % 11/21/2021 8:02 AM EDT [facility] Eos Percent 2.7 % 11/21/2021 8:02 AM EDT [facility] Baso Percent 0.4 % 11/21/2021 8:02 AM EDT [facility] Neut # 4.9 1.6 - 6.1 x10(3)/mcL 11/21/2021 8:02 AM EDT [facility] Comment:Neutrophils equals s egs plus bands IMMGRAN# 0.0 0.0 - 0.1 x10(3)/[facility] 11/21/2021 8:02 AM EDT [facility] Comment:Automated count of m etamyelocytes, myelocytes and promyelocytes. An absolute IG <0.1 is reported as 0.0. Lymph # 2.6 1.2 - 3.9 x10(3)/[facility] 11/21/2021 8:02 AM EDT [facility] [place] # 0.4 0.3 - 0.9 x10(3)/[facility] 11/21/2021 8:02 AM EDT [facility] Eos# 0.2 0.0 - 0.5 x10(3)/[facility] 11/21/2021 8:02 AM EDT [facility] Baso # 0.0 0.0 - 0.1 x10(3)/[facility] 11/21/2021 8:02 AM EDT [facility] Blood Venipuncture / Unknown 11/21/2021 5:27 AM EDT 11/21/2021 7:42 AM EDT us Lindy Byrne MD HEMATOLOGY ORDERABLES Jennifer bermeo Result [facility] [address] [facility] , [place] [address] documented in this encounter Visit Diagnoses Not on filedocumented in this encounter Additional Health Concerns Infection Onset Date Last Indicated Resolved Time R/O COVID-19 07/06/2024 07/06/2024 07/06/2024 8:58 PM EST R/O COVID-19 07/27/2024 07/27/2024 07/27/2024 1:21 PM EST documented as of this encounter Care Teams Vb Net Programmer Relationship Specialty Start Date End Date Lakshmi Hinton MD [address] [place] [address] PCP - General Family Medicine 06/03/16 documented as of this encounter
--- OUTSIDE RECORDS SUMMARY | 2021-11-21 04:00 | XMS_ITS | Encounter Summary ---
Author Organization [place] [address] Care Team Providers Care Print Support Specialist Name Role Phone Lakshmi Hinton MD Primary Care Provider [phone] Encounter Details Date Type Department Care Team (Late st Contact Info) Description 11/21/2021 5:00 AM EDT Hospital Encounter SE Referral Lab 1 [place] [address] Lindy Byrne MD [address] [place] [address] Social History Tobacco Use Types Packs/Day Years Used Date Smoking Tobacco: Never Passive Smoke Exposure: Current Smokeless Tobacco: Never Comments:AROUND SECOND HAND SMOKE Alcohol Use Standard Drinks/Week Comments No 0 (1 standard drink = 0.6 oz pur e alcohol) [facility] Utilities Answer Date Recorded In the past 12 months has [employer] electric, gas, oil, or water [employer] threatened to shut off services in your home? No 11/14/2024 Overall Financial Resource Strain (CARDIA) Answe r Date Recorded How hard is it for you to pa y for the very basics like food, housing, medical care, and heating? Not very hard 11/14/2024 PHQ-2 Answer Date Recorded PHQ-2 Total Score 0 11/14/2024 [facility] of Occupat ional Health - Occupational Stress [...] things needed for daily living? No 06/19/2021 [facility] IP Transportation Answer D ate [...] Description 02/11/2026 2:15 PM EDT Office Visit [facility] [address] [address] Dwayne Payan MD [address] [place] [address] Scheduled Orders Name Type Priority Associated Diagnoses Orde r Schedule COMPREHENSIVE METABOLIC PANEL Lab Routine ONCE for 1 Occur rences starting 11/21/2021 until 12/26/2021 documented as of this encounter Results * (ABNORMAL) COMPREHENSIVE METABOLIC PANEL (11/21/2021 5:27 AM EDT) Sodium 143 136 - 145 mmol/L 11/21/2021 8:35 AM EDT [facility] Potassium 4.3 3.5 - 5.0 mmol/L 11/21/2021 8:35 AM EDT [facility] Chloride 106 98 - 107 mmol/L 11/21/2021 8:35 AM EDT [facility] Total CO2 26 22 - 29 mmol/L 11/21/2021 8:35 AM EDT [facility] Anion Gap 11 7 - 16 mmol/L 11/21/2021 8:35 AM EDT [facility] Calcium 8.7 8.6 - 10.4 mg/dL 11/21/2021 8:35 AM EDT [facility] Glucose Lvl 72(L) 74 - 100 mg/dL 11/21/2021 8:35 AM EDT [facility] BUN 20 6 - 20 mg/dL 11/21/2021 8:35 AM EDT [facility] Creatinine 1.02 0.51 - 1.30 mg/dL 11/21/2021 8:35 AM EDT [facility] Albumin 3.7 3.5 - 5.2 gm/dL 11/21/2021 8:35 AM EDT [facility] Total Protein 5.6(L) 6.4 - 8.3 gm/dL 11/21/2021 8:35 AM EDT [facility] Bili Total 0.2 0.1 - 1.3 mg/dL 11/21/2021 8:35 AM EDT [facility] ALT 12 <=41 U/L 11/21/2021 8:35 AM EDT [facility] AST 11 <=40 U/L 11/21/2021 8:35 AM EDT [facility] Alk Phos 68 36 - 123 U/L 11/21/2021 8:35 AM EDT [facility] eGFR (CKD-EPIcr 2020) 68 >=60 mL/min/1.7 3 m2 11/21/2021 8:35 AM EDT [facility] Comment:Estimated GFR was ca lculated using the CKD-EPIcr (2020) equation refit without race. The equation is recommended by the National Kidney Foundation - [place] Society of Nephrology Task Force. Blood Venipuncture / Unknown 11/21/2021 5:27 AM EDT 11/21/2021 7:42 AM EDT us Lindy Byrne MD CHEMISTRY ORDERABLES Final Result [facility] 1 [facility] [place], [place] [address] [facility] [address] [place] [address] documented in this encounter Visit Diagnoses Not on filedocumented in this encounter Additional Health Concerns Infection Onset Date Last Indicated Resolved Time R/O COVID-19 07/06/2024 07/06/2024 07/06/2024 8:58 PM EST R/O COVID-19 07/27/2024 07/27/2024 07/27/2024 1:21 PM EST documented as of this encounter Care Teams Print Support Specialist Relationship Specialty Start Date End Date Lakshmi Hinton MD [address] [place] [address] PCP - General Family Medicine 06/03/16 documented as of this encounter
--- OUTSIDE RECORDS SUMMARY | 2021-11-28 04:00 | XMS_ITS | Encounter Summary ---
Author Organization [place] [address] Care Team Providers Care Benefit Authorizer Name Role Phone Lakshmi Hinton MD Primary Care Provider [phone] Encounter Details Date Type Department Care Team (Late st Contact Info) Description 11/28/2021 5:00 AM EDT Hospital Encounter SE Referral Lab 1 [place] [address] Lindy Byrne MD [address] [place] [address] Social History Tobacco Use Types Packs/Day Years Used Date Smoking Tobacco: Never Passive Smoke Exposure: Current Smokeless Tobacco: Never Comments:AROUND SECOND HAND SMOKE Alcohol Use Standard Drinks/Week Comments No 0 (1 standard drink = 0.6 oz pur e alcohol) [facility] Utilities Answer Date Recorded In the past 12 months has [employer] electric, gas, oil, or water [employer] threatened to shut off services in your home? No 11/14/2024 Overall Financial Resource Strain (CARDIA) Answe r Date Recorded How hard is it for you to pa y for the very basics like food, housing, medical care, and heating? Not very hard 11/14/2024 PHQ-2 Answer Date Recorded PHQ-2 Total Score 0 11/14/2024 [facility] [place] of Occupat ional Health - Occupational Stress [...] things needed for daily living? No 06/19/2021 [facility] IP Transportation Answer D ate Recorded [...] 2:15 PM EDT Office Visit [facility] [place] [address] [address] Dwayne Payan MD [address] [place] [address] Scheduled Orders Name Type Priority Associated Diagnoses Orde r Schedule CBC WITH DIFF Lab Routine ONCE for 1 Occurrences starting 11/28/2021 until 01/02/2022 documented as of this encounter Results * (ABNORMAL) CBC WITH DIFF (11/28/2021 5:48 AM EDT) WBC 7.4 3.7 - 10.3 x10(3)/mcL 11/28/2021 8:24 AM EDT [facility] RBC 4.05 3.90 - 5.20 x10(6)/mcL 11/28/2021 8:24 AM EDT [facility] Hgb 10.6(L) 11.2 - 15.7 g/dL 11/28/2021 8:24 AM EDT [facility] Hct 34.4 34.0 - 45.0 % 11/28/2021 8:24 AM EDT [facility] MCV 84.9 80.0 - 100.0 fL 11/28/2021 8:24 AM EDT [facility] MCH 26.2 26.0 - 34.0 pg 11/28/2021 8:24 AM EDT [facility] MCHC 30.8 30.7 - 35.5 g/dL 11/28/2021 8:24 AM EDT [facility] RDW 15.6(H) <=14.9 % 11/28/2021 8:24 AM EDT [facility] Platelet 182 155 - 369 x10(3)/mcL 11/28/2021 8:24 AM EDT [facility] MPV 11.9 8.8 - 12.5 fL 11/28/2021 8:24 AM EDT [facility] Neut Percent 59.4 % 11/28/2021 8:24 AM EDT [facility] Comment:Neutrophils equals s egs plus bands Imm Gran% 0.1 % 11/28/2021 8:24 AM EDT [facility] Comment:Automated count of m etamyelocytes, myelocytes and promyelocytes. Lymph Percent 30.5 % 11/28/2021 8:24 AM EDT [facility] Eddy Percent 7.0 % 11/28/2021 8:24 AM EDT [facility] Eos Percent 2.7 % 11/28/2021 8:24 AM EDT [facility] Baso Percent 0.3 % 11/28/2021 8:24 AM EDT [facility] Neut # 4.4 1.6 - 6.1 x10(3)/mcL 11/28/2021 8:24 AM EDT [facility] Comment:Neutrophils equals s egs plus bands IMMGRAN# 0.0 0.0 - 0.1 x10(3)/[facility] 11/28/2021 8:24 AM EDT [facility] Comment:Automated count of m etamyelocytes, myelocytes and promyelocytes. An absolute IG <0.1 is reported as 0.0. Lymph # 2.3 1.2 - 3.9 x10(3)/[facility] 11/28/2021 8:24 AM EDT [facility] Eddy # 0.5 0.3 - 0.9 x10(3)/[facility] 11/28/2021 8:24 AM EDT [facility] Eos# 0.2 0.0 - 0.5 x10(3)/[facility] 11/28/2021 8:24 AM EDT [facility] Baso # 0.0 0.0 - 0.1 x10(3)/[facility] 11/28/2021 8:24 AM EDT [facility] Blood Venipuncture / Unknown 11/28/2021 5:48 AM EDT 11/28/2021 7:36 AM EDT us Lindy Byrne MD HEMATOLOGY ORDERABLES Jennifer bermeo Result [facility] [address] [facility] , [place] [address] documented in this encounter Visit Diagnoses Not on filedocumented in this encounter Additional Health Concerns Infection Onset Date Last Indicated Resolved Time R/O COVID-19 07/06/2024 07/06/2024 07/06/2024 8:58 PM EST R/O COVID-19 07/27/2024 07/27/2024 07/27/2024 1:21 PM EST documented as of this encounter Care Teams Benefit Authorizer Relationship Specialty Start Date End Date Lakshmi Hinton MD [address] [place] [address] PCP - General Family Medicine 06/03/16 documented as of this encounter
[2025-05-09 19:08] LABS: Hematocrit 37.2 % (37.0-47.0); Hemoglobin 11.3 g/dL (12.2-16.2); Immature Granulocytes % 0.2 %; Mean Corpuscular HGB Conc 30.4 g/dL (31.8-35.4); Mean Corpuscular Hemoglobin 26.8 pg (27.0-31.2); Mean Corpuscular Volume 88.2 fl (81-99); Nucleated Red Blood Cells % 0 %; Platelet Count 266 K/mm3 (142-424); Red Blood Count 4.22 M/mm3 (4.20-5.40); Red Cell Distribution Width-SD 48.6 fL; White Blood Count 8.6 K/mm3 (4.8-10.8)
[2025-05-09 19:47] LABS: Alanine Aminotransferase 13 U/L (12-78); Albumin Level 4.1 g/dl (3.5-5.0); Albumin/Globulin Ratio 1.4 (1.1-1.8); Alkaline Phosphatase 131 U/L (38-126); Anion Gap 12.9 mEq/L (5-15); Aspartate Amino Transferase 19 U/L (14-36); Bilirubin,Total 0.6 mg/dl (0.2-1.3); Blood Urea Nitrogen 20 mg/dl (7-17); Calcium 9.4 mg/dl (8.4-10.2); Carbon Dioxide 27 mmol/L (22.0-30.0); Chloride 105 mmol/L (98-107); Cholesterol 147 mg/dl (140-200); Creatinine,Serum 1.10 mg/dl (0.52-1.04); Estimated Glomerular Filt Rate 53 ml/min (>60); GFR (African American) 64 ML/MIN (>60); Globulin 2.9 g/dL (1.3-3.2); Glucose 86 mg/dl (74-100); HDL Cholesterol 42 mg/dl (40-60); Potassium 3.9 mmoL/L (3.5-5.1); Sodium 141 mmol/L (136-145); Total Protein,Serum 7.0 g/dl (6.3-8.2); Triglycerides 201 mg/dl (30-150)
[2025-05-09 20:33] LABS: Hepatitis C Ab Qual. W/ RFX NEGATIVE (Negative)
--- OUTSIDE RECORDS SUMMARY | 2025-05-10 11:46 | XMS_ITS | Clinical Summary ---
Author Organization [facility] Address [address] [place] [address] Care Team Providers Care Geosciences Associate Professor Name Role Phone None, None Primary Care Provider Unavailabl e Allergies Active Allergy Reactions Criticality Noted Date Comments Fluconazole 10/02/2015 Penicillins 10/02/2015 Medications ibuprofen (MOTRIN) 800 mg tablet Take 800 mg by mouth 2 times daily. Active glucose blood test strips (ONETOUCH ULTRA TEST) Strip Pt testing twice a day 100 Strip 11 6 Active miconazole (MONISTAT 1 COMBINATION PACK) 1,200-2 mg-% Kit Use 1 kit daily for 3 days 3 Each 0 6 Active insulin degludec (TRESIBA FLEXTOUCH U-100) 100 unit/mL (3 mL) 25 Units by Subcutaneous route daily. 15 mL 1 6 Active norethindrone-e thinyl estradiol (GILDESS ,) 1-20 mg-mcg Tablet Take 1 Tab by mouth daily. 20 Tab 11 6 Active Insulin Glargine (LANTUS) 100 unit/mL (3 mL) Solostar INPN 12 Units by Subcutaneous route nightly. 15 mL 2 7 Active metFORMIN (GLUCOPHAGE) 1,000 mg tablet Take 1 Tab by mouth 2 times daily (with meals). 60 Tab 5 7 Active ergocalciferol (ERGOCALCIFEROL ) 50,000 unit Capsule Take 1 Cap by mouth every 7 days (once weekly). 4 Cap 3 7 Active UNIFINE PENTIPS 32 gauge x 5/32 USE WITH LANTUS AND VICTOZA INJECTIONS DAILY. 100 Each 11 7 Active canagliflozin (INVOKANA) 100 mg Tablet Take 1 Tab by mouth daily. Take before the first meal of the day 30 Tab 1 7 Active lisinopril (PRINIVIL, ZESTRIL) 5 mg tablet Take 1 Tab by mouth daily. 1 tablet daily for blood pressure 30 Tab 11 7 Active VICTOZA 3-MATHIEU 0.6 mg/0.1 mL (18 mg/3 mL) Pen Injector INJECT 1.8 MG BY SUBCUTANEOUS ROUTE ONCE DAILY. 9 mL 2 7 Active LYRICA 75 mg Capsule TAKE ONE (1) CAPSULE BY MOUTH TWO TIMES A DAY. 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 10/06/2015 Proteinuria due to type 2 diabetes mellitus 09/21 Vitamin D deficiency 10/03/2015 Type 2 diabetes, uncontrolled, with neuropathy 0 10/02/2015 Ulcer of right foot 10/02/2015 Foot ulcer, left 10/02/2015 Chronic fatigue 10/02/2015 Vaginal yeast infection 10/02/2015 Family History Medical History Relation Name Comments Cancer Father pancreatic Heart Problems Father Hypertension Father Cancer Mother leukemia Diabetes Mother Heart Problems Mother Hypertension Mother Stroke Mother Relation Name Status Comments Father Mother Social History Tobacco Use Types Packs/Day Years Used Date Smoking Tobacco: Never Alcohol Use Standard Drinks/Week Comments Yes 0 (1 standard drink = 0.6 oz pur e alcohol) occ Comments Unknown Sex and Gender Information Value Date Recorded Sex Assigned at Not on file Legal Sex Female 3:33 PM EST Gender Identity Not on file Sexual Orientation Not on file Last Filed Vital Signs Vital Sign Reading Time Taken Comments Blood Pressure 126/76 03/01/2017 1:10 PM EDT Pulse - - Temperature - - Respiratory Rate - - Oxygen Saturation - - Inhaled Oxygen Concentration - - Weight 111.1 kg (245 lb) 03/01/2017 1:10 PM EDT Height 165.1 cm (5' 5 ) 03/01/2017 1:10 PM EDT Body Mass Index 40.77 03/01/2017 1:10 PM EDT Plan of Treatment Health Maintenance Due Date Last Done Comments Cologuard 1975 Colonoscopy 1975 Colorectal Cancer Screening 1975 FIT 1975 Tetanus Vaccination (Every 10 Years) 1993 Cervical Cancer Screening 1996 Lipid Screening 10/01/2020 10/02/2015 Depression Screening 05/24/2024 COVID-19 Vaccine ( season) 2025 Influenza Vaccination (#1) 2025 Procedures Procedure Name Priority Date/Time Associated Diagnosis Comments LIPID PROFILE Routine 10/02/2015 11:31 AM EDT Type 2 diabetes, uncontrolled, with neuropathy (HCC) from Last 3 Months or Most Recently Relevant to Health Maintenance Results * (ABNORMAL) LIPID PROFILE (10/02/2015 11:31 AM EDT) Chol/HDL Ratio 5.0 0 - 5 [facility] Cholesterol 205(H) 125 - 199 mg/dL [facility] EXTER[facility] Comment: TOTAL CHOLESTEROL INTERPRETATION: Less than 200 mg/dL Desireable 200-239 mg/dL Borderline Greater or Equal to 240 mg/dL High LDL Calculated 110(H) 0 - 100 mg/dL [facility] EX[facility] Comment: LDL CHOLESTEROL INTERPRETATION: Less than 100 mg/dL Optimal 100-129 mg/dL Near optimal/above optimal 130-159 mg/dL Borderline High 160-189 mg/dL High Greater or Equal to 190 mg/dL Very High HDL 41 40 - 180 mg/dL [facility] Comment: HDL CHOLESTEROL INTERPRETATION: Less than 40 mg/dL Low Greater than 60 mg/dL Desirable Triglycerides 272(H) 0 - 150 mg/dL [facility] Comment: TOTAL TRIGLYCERIDE INTERPRETATION: Less than 150 mg/dL Normal 150-199 mg/dL Borderline HIgh 200-499 mg/dL High Greater or Equal to 500 mg/dL Very High Plasma 10/02/2015 11:3 1 AM EDT 10/02/2015 5:31 PM EDT Narrative [facility] EXTER[facility] - 10/02/2015 6:23 PM EDT Has the patient fasted?->Yes us Mima Isidro MD CHEMISTRY ORDERABLES Final Result [facility] [id number] from Last 3 Months or Most Recently Relevant to Health Maintenance Insurance MEDICARE AETNA [facility] [place] MEDICAID MEDICARE AETNA [facility] MEDICAID Care Teams Geosciences Associate Professor Relationship Specialty Start Date End Date None, None [address] [place] [address] PCP - General 07/30/16
--- OUTSIDE RECORDS SUMMARY | 2025-05-10 11:46 | XMS_ITS | Encounter Summary ---
Author Organization [facility] Address [address] [place] [id number] Care Team Providers Care [employer] Director Name Role Phone None, None Primary Care Provider Unavailabl e Reason for Visit * Reason Onset Date Comments Other 01/13/2017 CMN and Therapeu tic Shoe Form - NPO Encounter Details Date Type Department Care Team (Late st Contact Info) Description 01/13/2017 Telephone [facility] - [facility], [place] [address] [place] [phone] Mima Isidro MD [address] [place] [address] Other (CMN and Therapeutic Shoe Form - NPO) Social History Tobacco Use Types Packs/Day Years [...] on file documented as of this encounter Miscellaneous Notes * Telephone Encounter - Kathryn Cline CMA - 01/15/2017 4:01 PM EDT Signed and faxed * Telephone Encounter - Kathryn Cline CMA - 01/15/2017 10:[address] Isidro's desk for signature * Telephone Encounter - Riri Chu - 01/13/2017 5:00 PM EDT Rcvd CMN and Therapeutic Shoe Form from [facility] documented in this encounter Plan of Treatment Not on file documented as of this encounter Visit Diagnoses Not on filedocumented in this encounter Care Teams [employer] Director Relationship Specialty Start Date End Date None, None [address] [place] [address] PCP - General 07/30/16 documented as of this encounter
--- OUTSIDE RECORDS SUMMARY | 2025-05-10 11:47 | XMS_ITS | Clinical Summary ---
Author Organization [facility] Address [address] [place] [address] Phone Care Team Providers Care Controller Mechanic Name Role Phone Lakshmi Hinton MD Primary Care Provider [phone] Allergies Active Allergy Reactions Criticality Noted Date Comments Fluconazole Swelling,Rash High 06/03/2016 Gabapentin Nausea And Vomiting Low 06/03/2016 Penicillins Hives Medium 06/03/2016 Has tolerated cefepime and ceftriaxone since allergy reported Dulaglutide Other (See Comments) 07/29/2023 ketoacidosis Medications fenofibrate (LOFIBRA) 160 mg Oral Tablet Take 160 mg by mouth daily. Active multivitamin with folic acid (THERAGRAN) 400 mcg Oral Tablet Take 1 Tablet by mouth With evening meal. 10 Tablet 07/05/2021 Active clopidogreL (PLAVIX) 75 mg Oral Tablet Take 1 Tablet by mouth daily. 30 Tablet 1 07/06/2021 Active glipiZIDE (GLUCOTROL) 5 mg Oral Tablet Take 5 mg by mouth daily. 07/16/2021 Active hydroCHLOROthiaz keenan (MICROZIDE) 12.5 mg Oral Capsule Take 12.5 mg by mouth daily. 05/26/2021 Active metoprolol succinate ER (TOPROL-XL) 100 mg Oral Tablet Sustained Release 24 hr Take 100 mg by mouth daily. 08/12/2021 Active pregabalin (LYRICA) 150 mg Oral Capsule Take 150 mg by mouth 2 times daily. 10/14/2021 Active DULoxetine (CYMBALTA) 30 mg Oral Capsule, Delayed Release(E.C.) Take 30 mg by mouth daily. 11/09/2021 Active buPROPion (WELLBUTRIN SR) 100 mg Oral tablet sustained-releas e 12 hr Take 100 mg by mouth daily. 06/25/2023 Active fUROsemide (LASIX) 20 mg Oral Tablet Take 1 Tablet by mouth daily. 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 30 Tablet 11 02/12/2025 Active Active Problems Problem Noted Date Diagnosed Date Precordial pain 02/12/2025 Obesity, Class II, BMI 35-39.9 07/30/2024 Assessment & Plan (11/14/2024 7:26 AM EDT): Complicates all aspects of care - consider outpt lifestyle modifications Assessment & Plan (08/02/2024 8:14 AM EDT): -Body mass index is 37.79 kg/m . Assessment & Plan (08/01/2024 8:00 AM EDT): -Body mass index is 39.71 kg/m . Assessment & Plan (07/31/2024 2:12 PM EDT): -Body mass index is 39.71 kg/m . Assessment & Plan (07/30/2024 11:54 AM EDT): -Body mass index is 39.64 kg/m . Community acquired pneumonia of right lung 07/27 Assessment & Plan (08/02/2024 1:10 PM EDT): - CTA PE 07/27/24: showed extensive pneumonia - chest xray 07/30/24 reviewed: improving R lung infiltrate consistent with resolving pneumonia - f/u CXR ordered improving perihilar airspace disease. - afebrile prior 24 hours - continue rocephin course completed 08/02 - completed zithromax - procal low, no wbc - ABG noted - continue IS, valve flutter, mucinex - Legionella Ag negative - MRSA nares negative - lower respiratory culture with moderate growth of normal oral kimmy Assessment & Plan (08/01/2024 9:28 AM EDT): - CTA PE 07/27/24: showed extensive pneumonia - chest xray 07/30/24 reviewed: improving R lung infiltrate consistent with resolving pneumonia - afebrile prior 24 hours - continue rocephin - completed zithromax - procal low, no wbc - ABG noted - continue IS, valve flutter, mucinex - Legionella Ag negative - MRSA nares negative - lower respiratory culture with moderate growth of normal oral kimmy Assessment & Plan (07/31/2024 2:12 PM EDT): - CTA PE 07/27/24: showed extensive pneumonia - chest xray 07/30/24: improving R lung infiltrate consistent with resolving pneumonia - afebrile today 38.2F - continue rocephin - completed zithromax - procal low, no wbc - ABG noted - continue IS, valve flutter, mucinex - urinary ag negative - MRSA nares negative - lower respiratory culture with moderate growth of normal oral kimmy Assessment & Plan (07/30/2024 12:28 PM EDT): - CT PE showed extensive pneumonia - afebrile 07/30/24 and 98F - continue rocephin - completed zithromax - procal low, no wbc - ABG noted - continue IS, valve flutter, mucinex - urinary ag negative - MRSA nares negative Assessment & Plan (07/29/2024 9:41 AM EST): - CT PE showed extensive pneumonia - afebrile today and 98F - continue rocephin -completed zithromax - procal low, no wbc - ABG noted - added IS, valve flutter, mucinex - urinary ag negative - MRSA nares negative - wheezing. Patient states she plays Bingo couple times a week and exposed to smoke. Has had exposure while working in past to. Discussed PFTs as outpatient. Continue duonebs Assessment & Plan (07/28/2024 2:09 PM EST): - CT PE showed extensive pneumonia - low grade fever 99.3F - continue rocephin, zithromax - procal low, no wbc - ABG noted - continue IS, valve flutter, mucinex - urinary ag negative - MRSA nares negative - duonebs Chronic heart failure with p reserved ejection fraction (HFpEF) 07/27/2024 Assessment & Plan (11/14/2024 9:23 PM EDT): Holding HCTZ, finerenone, and lasix for 2 more days until rpt BMP Assessment & Plan (11/14/2024 7:26 AM EDT): - cont BB - holding HCTZ, finerenone, and lasix with SYDNI Assessment & Plan (08/02/2024 10:06 AM EDT): - ECHO 04/2024: LVEF 50-55% - probnp 1170 but higher in past 2k - strict I&O - daily weights 234 lbs from 250lbs on admission - currently on lasix 40mg daily IV transitioned to 40 mg po beginning 08/02. Plan to decrease to 20 mg in am 08/03. Home lasix dose is 20mg PRN. Discussed will likely need to be on it daily. Continue to titrate diuresis. - stable renal function; Scr 1.14 - supplemental K Assessment & Plan (08/01/2024 9:28 AM EDT): - ECHO 04/2024: LVEF 50-55% - probnp 1170 but higher in past 2k - strict I&O - daily weights 246 lbs from 250lbs on admission - currently on lasix 40mg daily IV. Home lasix dose is 20mg PRN. Discussed will likely need to be on it daily. Continue to titrate diuresis. - stable renal function; Scr 1.22 - supplemental K Assessment & Plan (07/31/2024 2:12 PM EDT): - ECHO 04/2024: LVEF 50-55% - probnp 1170 but higher in past 2k - strict I&O - daily weights 246 lbs from 250lbs on admission - currently on lasix 40mg daily IV. Home lasix dose is 20mg PRN. Discussed will likely need to be on it daily. Continue to titrate diuresis. - stable renal function - supplemental K Assessment & Plan (07/30/2024 12:28 PM EDT): - ECHO 04/2024: LVEF 50-55% - probnp 1170 but higher in past 2k - strict I&O - daily weights 246 lbs. Waiting for today's weight - decrease lasix 40mg BID to daily. Improving edema and lung sounds. - stable renal function - supplemental K Assessment & Plan (07/29/2024 9:41 AM EST): - ECHO 04/2024: LVEF 50-55% - probnp 1170 but higher in past 2k - strict I&O - daily weights 246 lbs. Waiting for today's weight - continue lasix 40mg BID. Improving edema and lung sounds. - monitor renal function. Awaiting today's BMP. Continue supplemental K Assessment & Plan (07/28/2024 2:09 PM EST): - ECHO 04/2024: LVEF 50-55% - probnp 1170 but higher in past 2k - strict I&O - daily weights 246 lbs Status post below knee amputation, left 07/07/19 25 Assessment & Plan (11/14/2024 7:26 AM EDT): - monitor for wounds and circulatory dysfunction Assessment & Plan (08/02/2024 8:14 AM EDT): Continue plavix Assessment & Plan (08/01/2024 8:00 AM EDT): Continue plavix Assessment & Plan (07/31/2024 2:12 PM EDT): Continue plavix Assessment & Plan (07/30/2024 11:54 AM EDT): Continue plavix Assessment & Plan (07/29/2024 9:41 AM EST): Continue plavix Assessment & Plan (07/28/2024 2:09 PM EST): Continue plavix Assessment & Plan (07/07/2024 1:23 AM EST): History of PVD follows vascular Acute hypoxemic respiratory failure 07/06/2024 Assessment & Plan (07/07/2024 1:23 AM EST): From CHF-BiPAP SP 40 IV Lasix, start 40 bid IV I/O DW NA restricted diet Status post angioplasty 05/09/2024 Coronary artery disease invo lving salt river coronary artery of salt river heart with angina pectoris 05/06/2024 Assessment & Plan (11/14/2024 7:26 AM EDT): - cont plavix, BB - holding fenofibrate with current CrCl Assessment & Plan (08/02/2024 9:41 AM EDT): -0S/p [facility] high grade disease mid LAD CHONG stent, moderate disease in mid RCA 04/2024 - plavix, toprol Assessment & Plan (08/01/2024 9:28 AM EDT): S/p [facility] high grade disease mid LAD CHONG stent, moderate disease in mid RCA 04/2024 - plavix, toprol Assessment & Plan (07/31/2024 2:12 PM EDT): S/p [facility] high grade disease mid LAD CHONG stent, moderate disease in mid RCA 04/2024 - aspirin, plavix, toprol Assessment & Plan (07/30/2024 11:54 AM EDT): S/p [facility] high grade disease mid LAD CHONG stent, moderate disease in mid RCA 04/2024 - aspirin, plavix, toprol Assessment & Plan (07/29/2024 9:41 AM EST): S/p [facility] high grade disease mid LAD CHONG stent, moderate disease in mid RCA 04/2024 - aspirin, plavix, toprol Assessment & Plan (07/28/2024 2:09 PM EST): S/p [facility] high grade disease mid LAD CHONG stent, moderate disease in mid RCA 04/2024 - aspirin, plavix, toprol Assessment & Plan (07/07/2024 1:23 AM EST): SP stent mid LAD 05/09-no chest pain Resume DAPT, beta-kalee Assessment & Plan (05/10/2024 1:09 PM EST): As above Dyspnea, unspecified type 05/02/2024 Assessment & Plan (05/02/2024 6:11 PM EST): Managemnet as below Acute respiratory failure with hypoxia Assessment & Plan (08/02/2024 10:07 AM EDT): - secondary to acute on chronic HFpEF, pneumonia - requiring 15L HF on admission. Now currently down to room air. - Room air at baseline - ABG reviewed from 07/28 - PFTs as outpatient - desaturates at night and snores-- sleep referral ordered Assessment & Plan (08/01/2024 9:28 AM EDT): - secondary to acute on chronic HFpEF, pneumonia - requiring 15L HF on admission. Now currently down to 2 LPM - Room air at baseline - ABG reviewed frin 07/28 - PFTs as outpatient - desaturates at night and snores-- sleep referral ordered Assessment & Plan (07/31/2024 2:12 PM EDT): - secondary to acute on chronic HFpEF, pneumonia - requiring 15L HF on admission. Now currently down to 8L - ABG reviewed - PFTs as outpatient - on RA at baseline - desaturates at night and snores-- sleep referral placed Assessment & Plan (07/30/2024 12:29 PM EDT): - secondary to acute on chronic HFpEF, pneumonia - requiring 15L HF on admission. Now currently down to 8L - ABG reviewed - PFTs as outpatient - check chest xray - on RA at baseline Assessment & Plan (07/29/2024 9:41 AM EST): - secondary to acute on chronic HFpEF, pneumonia - requiring 12L HF improved from 15L HF - ABG reviewed - on RA at baseline Assessment & Plan (07/28/2024 2:09 PM EST): - secondary to acute on chronic HFpEF, pneumonia - requiring 15L HF - ABG reviewed - on RA at baseline Assessment & Plan (05/02/2024 6:11 PM EST): On 2L NC O2 Baseline RA; O2 sat goal > 90% Wean as able BT Duoneb Antibiotics as above History of stroke 05/02/2024 Assessment & Plan (11/14/2024 7:26 AM EDT): - cont plavix, BB - holding fenofibrate with current CrCl Assessment & Plan (08/02/2024 8:14 AM EDT): Supportive tx Assessment & Plan (08/01/2024 8:00 AM EDT): Supportive tx Assessment & Plan (07/31/2024 2:12 PM EDT): Supportive tx Assessment & Plan (07/30/2024 11:54 AM EDT): Supportive tx Assessment & Plan (07/29/2024 9:41 AM EST): Supportive tx Assessment & Plan (07/28/2024 2:09 PM EST): Supportive tx Assessment & Plan (05/02/2024 6:11 PM EST): BATTER OUT aspirin, statin, plavix CAP (community acquired pneumonia) 05/02/2024 Assessment & Plan (05/10/2024 1:09 PM EST): Completed treatment with abx improving Assessment & Plan (05/02/2024 6:11 PM EST): Started Rocephin + Doxy monitor clinical progress Mood disorder 05/02/2024 Assessment & Plan (11/14/2024 7:26 AM EDT): - cont wellbutrin - holding cymbalta with current CrCl Assessment & Plan (08/02/2024 8:14 AM EDT): Continue wellbutrin. Cymbalta Assessment & Plan (08/01/2024 8:00 AM EDT): Continue wellbutrin. Cymbalta Assessment & Plan (07/31/2024 2:12 PM EDT): Continue wellbutrin. Cymbalta Assessment & Plan (07/30/2024 11:54 AM EDT): Continue wellbutrin. Cymbalta Assessment & Plan (07/29/2024 9:41 AM EST): Continue wellbutrin. Cymbalta Assessment & Plan (07/28/2024 2:09 PM EST): Continue wellbutrin. Cymbalta Assessment & Plan (05/10/2024 1:09 PM EST): Continue home meds Assessment & Plan (05/02/2024 6:11 PM EST): BATTER OUT Cymbalta, Wellbutrin Chest pain 05/02/2024 Assessment & Plan (05/10/2024 1:09 PM EST): S/p LCH with CHONG to mid LAD Continues on aspirin, plavix, statin, BB Acute diastolic heart failure 07/29/2023 Assessment & Plan (07/07/2024 1:23 AM EST): Treatment above Echo 05/03 normal EF stage I DD no evidence of pulm hypertension Assessment & Plan (05/10/2024 1:09 PM EST): S/p IV diuresis Now well compensated Assessment & Plan (05/02/2024 6:11 PM EST): Lasix diureses x1 monitor and continue diuresis as needed BATTER OUT BB, ACEi, Snoring 07/29/2023 Orthopnea 07/20/2023 Diabetic autonomic neuropath y associated with diabetes mellitus due to underlying condition 07/20/2023 Assessment & Plan (11/14/2024 7:26 AM EDT): - cont lyrica Assessment & Plan (05/02/2024 6:11 PM EST): insuline basal-bolus started Hyperlipidemia associated with type 2 diabetes m ellitus 07/20/2023 Assessment & Plan (11/14/2024 7:26 AM EDT): - cont plavix, BB - holding fenofibrate with current CrCl Assessment & Plan (05/10/2024 1:09 PM EST): On statin Assessment & Plan (05/02/2024 6:11 PM EST): BATTER OUT statin, fenofibrate Status post transmetatarsal amputation of foot, right 09/02/2021 Assessment & Plan (11/14/2024 7:26 AM EDT): - monitor for wounds and circulatory dysfunction Assessment & Plan (08/02/2024 8:14 AM EDT): Continue plavix Assessment & Plan (08/01/2024 8:00 AM EDT): Continue plavix Assessment & Plan (07/31/2024 2:12 PM EDT): Continue plavix Assessment & Plan (07/30/2024 11:54 AM EDT): Continue plavix Assessment & Plan (07/29/2024 9:41 AM EST): Continue plavix Assessment & Plan (07/28/2024 2:09 PM EST): Continue plavix Sepsis 06/19/2021 Type 2 diabetes mellitus wit h hyperglycemia, without long-term current use of insulin 06/19/2021 Assessment & Plan (11/14/2024 7:26 AM EDT): - cont correctional calculator - BG checks AC and HS - holding BATTER OUT glipizide Assessment & Plan (08/02/2024 8:14 AM EDT): - A1c 6.7 - Glipizide continues - Glucose levels improving - continue SSI Assessment & Plan (08/01/2024 11:42 AM EDT): - A1c 6.7 - Glipizide continues - Glucose levels improving - continue SSI Assessment & Plan (07/31/2024 2:12 PM EDT): - A1c 6.7 - resumed daily BATTER OUT glipzide - lunch time sugar 200 - continue SSI Assessment & Plan (07/30/2024 11:54 AM EDT): - A1c 6.7 - holding BATTER OUT glipzide - not on lantus - continue SSI Assessment & Plan (07/29/2024 9:41 AM EST): - A1c 6.7 - holding BATTER OUT glipzide - not on lantus - continue SSI Assessment & Plan (07/28/2024 2:09 PM EST): - A1c pending - holding BATTER OUT glipzide - not on lantus - continue SSI Assessment & Plan (07/07/2024 1:23 AM EST): Lab Results Component Value Date HGBA1C 5.8 (H) 11/21/2021 SS Syncope 06/19/2021 Diabetic ketoacidosis withou t coma associated with type 2 diabetes mellitus 06/19/2021 Acute kidney injury superimp osed on stage 3a chronic kidney disease 06/19/2021 Assessment & Plan (11/14/2024 9:23 PM EDT): Baseline Cr= 1.0-1.2, admission Cr= 2.42. In context of drinking nothing but Dr. Win while in 90+F degree heat for 6 hours. ARIAS without evidence of obstructive uropathy. Some reports of urinary retention, but far more likely just oliguria. She was able to void on her own without issue here once resuscitated, and her Cr improved towards baseline. She was discharged home with the plan to rpt BMP in 2-3 days Assessment & Plan (11/14/2024 9:24 AM EDT): Baseline Cr= 1.0-1.2, admission Cr= 2.42. Likely obstructive uropathy, but also could be hypovolemic given poor fluid intake and recent prolonged heat exposure on Wednesday. - renal ultrasound ordered - serial BMPs - Strict I/Os, avoid nephrotoxic drugs - possible DC if Cr improving and renal ultrasound reassuring Gas gangrene of foot 06/19/2021 Diabetic foot infection 06/18/2021 Diabetic polyneuropathy asso ciated with type 2 diabetes mellitus 09/21/2018 Assessment & Plan (08/02/2024 8:14 AM EDT): - continue BATTER OUT lyrica Assessment & Plan (08/01/2024 8:00 AM EDT): - continue BATTER OUT lyrica Assessment & Plan (07/31/2024 2:12 PM EDT): - continue BATTER OUT lyrica Assessment & Plan (07/30/2024 11:54 AM EDT): - continue BATTER OUT lyrica Assessment & Plan (07/29/2024 9:41 AM EST): - continue BATTER OUT lyrica Assessment & Plan (07/28/2024 2:09 PM EST): - continue BATTER OUT lyrica Assessment & Plan (05/10/2024 1:09 PM EST): Keep BG 140-180 SSI Adjust as necessary Assessment & Plan (05/02/2024 6:11 PM EST): BATTER OUT Lyrica, CYmbalta Exostosis 08/24/2018 Overview (08/24/2018): Added automatically from request for surgery [id number] Contracture of right Achilles tendon 08/24/2018 Overview (08/24/2018): Added automatically from request for surgery [id number] Expressive aphasia 06/02/2017 Asymptomatic hypertensive urgency 06/02/2017 Status post skin flap graft 06/24/2016 Gangrene of left foot 06/22/2016 Cellulitis and abscess of foot, except toes 05/26 Hypertension associated with diabetes 10/06/2015 Assessment & Plan (11/14/2024 9:23 PM EDT): Holding HCTZ, finerenone, and lasix for 2 more days until rpt BMP Assessment & Plan (11/14/2024 7:26 AM EDT): - cont BB - holding HCTZ, finerenone, and lasix with SYDNI Assessment & Plan (08/02/2024 9:41 AM EDT): - Controlled 08/02 - continue BATTER OUT hctz, toprol Assessment & Plan (08/01/2024 9:28 AM EDT): - Monitor - continue BATTER OUT hctz, toprol Assessment & Plan (07/31/2024 2:12 PM EDT): 142/67 - continue BATTER OUT hctz, toprol Assessment & Plan (07/30/2024 12:28 PM EDT): 147/61 - continue BATTER OUT hctz, toprol Assessment & Plan (07/29/2024 9:41 AM EST): 141/58 - continue BATTER OUT hctz, toprol Assessment & Plan (07/28/2024 2:09 PM EST): 122/46 - continue BATTER OUT hctz, toprol Assessment & Plan (05/10/2024 1:09 PM EST): Controlled Continue current meds Assessment & Plan (05/02/2024 6:11 PM EST): BATTER OUT Lisinopril, HCTZ, BB Pure hypercholesterolemia 10/06/2015 Proteinuria due to type 2 diabetes mellitus 09/21 Chronic fatigue 10/02/2015 Encephalopathy Speech disturbance Acute ischemic stroke Bacteremia Postoperative state Resolved Problems Problem Noted Date Diagnosed Date Resolved Date Diabetic ulcer of left foot associated with type 2 diabetes mellitus 06/19/2021 08/02/2024 Ulcer of right heel and midf oot with fat layer exposed 09/21/2018 07/17/2020 Skin graft failure 06/25/2016 2 Skin flap necrosis 06/24/2016 2 Dehiscence of closure of mus kelvin or muscle flap 06/24/2016 06/19/2021 Myocutaneous flap necrosis 06/24/2016 0 06/19/2021 Skin ulcer of right foot wit h necrosis of muscle 06/23/2016 07/17/2020 Wound dehiscence 06/23/2016 06/19/2021 Acute osteomyelitis of right ankle or foot 06/22/2016 07/17/2020 Cellulitis in diabetic foot 06/03/2016 06/19/2021 Diabetic ulcer of right foot associated with type 2 diabetes mellitus 06/03/2016 06/19/2021 Encounters Date Type Department Care Team Description 02/13/2025 Telephone [facility] [address] [address] [place] [address] Stephanie Henderson, Clerical Staff Referral Follow-up (Cardiac rehab) 02/12/2025 2:00 PM EDT Office Visit [facility] [address] [facility] [address] [place] [address] Dwayne Payan MD Type 2 diabetes mellitus with hyperglycemia, without long-term current use of insulin (HCC) (Primary Dx); Precordial pain; 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; Status post angioplasty from Last 3 Months Immunizations Immunization Administration Dates Next Due Pneumococcal Conjugate Vaccine 20 Valent 024() Surgical History Surgery Date Site/Laterality Comments FOOT SURGERY 06/04/2016 Foot/Right INCISION AND DRAIN/DEBRIDE RIGHT FOOT; Surgeon: Abrahan Abreu DPM; Location: [facility]; Service: Podiatry TOE AMPUTATION 06/09/2016 Toe/Right AMPUTATION WITH DEBRIDEMENT OF RIGHT 2ND TOE; Surgeon: Abrahan Abreu DPM; Location: [facility]; Service: Podiatry FOOT SURGERY 06/14/2016 Foot/Right right transmetatarsal amputation; Surgeon: Brad Mancia DPM; Location: [facility]; Service: Podiatry FOOT SURGERY 06/17/2016 Foot/Right DEBRIDEMENT OF RIGHT FOOT AND DELAYED PRIMARY CLOSURE WITH DERMACLOSE; Surgeon: Brad Mancia DPM; Location: [facility]; Service: Podiatry DILATION AND CURETTAGE OF UTERUS 05/24/1990 - 05/23/1991 OSTECTOMY 09/13/2018 Foot/Right Ostectomy for right foot. Percutaneous Achilles tendon lengthening of right foot.; Surgeon: Brad Mancia DPM; Location: [facility]; Service: Podiatry Medical devices from this surgery are in the Medical Devices section. ACHILLES TENDON SURGERY 09/13/2018 Ankle/Right Surgeon: Brad Mancia DPM; Location: [facility]; Service: Podiatry Medical devices from this surgery are in the Medical Devices section. FOOT SURGERY 06/22/2021 Left incision and drainage left foot, debridement left foot ulcer; Surgeon: Abrahan Abreu DPM; Location: [facility] MA[facility] OR; Service: Podiatry FOOT SURGERY 06/25/2021 Left LEFT FOOT/ANKLE INCISION AND DRAINAGE/DEBRIDEMENT of multiple spaces; Surgeon: Abrahan Abreu DPM; Location: [facility] MA[facility] OR; Service: Podiatry LEG AMPUTATION BELOW KNEE 07/02/2021 Left Left below the knee amputation; Surgeon: Darian Vera MD; Location: [facility] MAIN OR; Service: Vascular CORONARY PERCUTANEOUS INTERVENTION(PCI) 05/09/2024 N/A Surgeon: Merlin Renner MD; Location: [facility]; Service: Cardiac Medical devices from this surgery are in the Medical Devices section. Medical History Medical History Date Comments Diabetes mellitus (HCC) Hypertension Stroke (HCC) 05/2017 TIA Hyperlipidemia associated with type 2 diabetes m ellitus (HCC) 07/20/2023 Family History Medical History Relation Name Comments Cancer Father Diabetes Father Heart Disease Father Cancer Mother Diabetes Mother Heart Disease Mother Relation Name Status Comments Father Mother Social History Tobacco Use Types Packs/Day Years Used Date Smoking Tobacco: Never Passive Smoke Exposure: Current Smokeless Tobacco: Never Tobacco Cessation:Counseling Given: Not Answered Comments:AROUND SECOND HAND SMOKE Alcohol Use Standard Drinks/Week Comments No 0 (1 standard drink = 0.6 oz pur e alcohol) [facility] Utilities Answer Date Recorded In the past 12 months has e electric, gas, oil, or water company threatened to shut off services in your home? No 11/14/2024 Overall Financial Resource Strain (CARDIA) Answe r Date Recorded How hard is it for you to pa y for the very basics like food, housing, medical care, and heating? Not very hard 11/14/2024 PHQ-2 Answer Date Recorded PHQ-2 Total Score 0 11/14/2024 [facility] [place] [facility] - Occupational Stress [...] things needed for daily living? No 06/19/[address] [facility] IP Transportation Answer D ate Recorded In [...] Sign Reading Time Taken Comments Blood Pressure 120/60 02/12/2025 1:50 PM EDT Pulse 85 02/12/2025 1:50 PM EDT Temperature 36.2 C (97.1 F) 11/13/2024 11:42 PM EDT Respiratory Rate 16 11/14/2024 8:07 AM EDT Oxygen Saturation 93% 02/12/2025 1:50 PM EDT Inhaled Oxygen Concentration - - Weight 111.1 kg (245 lb) 02/12/2025 1:50 PM EDT Height 165.1 cm (5' 5 ) 02/12/2025 1:50 PM EDT Body Mass Index 40.77 02/12/2025 1:50 PM EDT Plan of Treatment Upcoming Encounters Date Type Department Care Team (Late st Contact Info) Description 02/11/2026 2:15 PM EDT Office Visit [facility] [address] [facility] [address] [place] [address] Dwayne Payan MD [address] [place] [address] Health Maintenance Due Date Last Done Comments Wellness Exam Medicare 1978 Diabetic Eye Exam 1993 Hepatitis B Vaccine (1 of 3 - 19+ 3-dose series) 1994 Cervical Cancer Screening 1996 Pap Smear 1996 HPV/Pap Cotest 2005 Breast Cancer Screening 2015 Cologuard 2020 Colon Cancer Screening 2020 Colonoscopy 2020 FIT 2020 Sigmoidoscopy 2020 Virtual Colonography 2020 Pneumococcal Vaccine 0-49 (2 of 2 - PCV) 02/07/2021 02/08/2020 DTaP/TDaP/Td (2 - Td or Tdap) 07/26/2021 07/27/2011 Kidney Health: uACR 06/18/2022 06/18/2021 COVID-19 Vaccine ( - season) 2025 Influenza Vaccine (#1) 2025 Hemoglobin A1c 01/27/2025 07/27/2024, 12/23, 12/13/2023, Additional history exists Lipids 09/18/2025 09/18/2024, 04/23, 05/05/2024, Additional history exists Kidney Health: eGFR 11/14/2025 11/14/2024, 11/13/2024, 08/02/2024, Additional history exists Meningococcal B Vaccine Aged Out No l onger eligible based on patient's age to complete this topic Medical Devices Implanted Type Area Hand Tufter Device Identifier Shelf Expiration Date Model / Serial / Lot Matrix Repair Cellular Core Grafixpl 2cm X 3cm - [id number] Implanted:Qty: 1 on 09/13/2018 by Brad Mancia DPM at [facility] Right: Foot [employer] 05/19/2019 [id number] / [id number] / [id number] System Stent Coronary Chong Synergy Xd 3mm X 20mm Mr Rx [employer] - [id number] Implanted:Qty: 1 on 05/09/2024 by Merlin Renner MD at [facility] N/A: [facility] [id number] 11/07/2025 [id number] / / [id number] Procedures Procedure Name Priority Date/Time Associated Diagnosis Comments BASIC METABOLIC PANEL Early AM 11/14/2024 7:49 AM EDT HEMOGLOBIN A1C Add-On 07/27/2024 12:53 PM EST LIPID SCREEN Early AM 05/10/2024 5:56 AM EST ALBUMIN/CREATININE RATIO, RANDOM URINE Routine 06/18/2021 9:48 PM EST from Last 3 Months or Most Recently Relevant to Health Maintenance Results * (ABNORMAL) BASIC METABOLIC PANEL (11/14/2024 7:49 AM EDT) Sodium 138 136 - 145 mmol/L 11/14/2024 9:24 AM EDT [facility] Potassium 4.9 3.5 - 5.0 mmol/L 11/14/2024 9:24 AM EDT [facility] Chloride 109(H) 98 - 107 mmol/L 11/14/2024 9:24 AM T [facility] Total CO2 18(L) 22 - 29 mmol/L 11/14/2024 9:24 AM [facility] Anion Gap 11 7 - 16 mmol/L 11/14/2024 9:24 AM T [facility] Calcium 8.2(L) 8.6 - 10.4 mg/dL 11/14/2024 9:24 AM [facility] Glucose Lvl 86 70 - 99 mg/dL 11/14/2024 9:24 AM EDT [facility] BUN 44(H) 6 - 20 mg/dL 11/14/2024 9:24 AM [facility] Creatinine 1.99(H) 0.51 - 1.30 mg/dL 11/14/2024 9:24 AM [facility] eGFR (CKD-EPIcr 2020) 30(L) >=60 mL/min/1.7 3 m2 11/14/2024 9:24 AM EDT [facility] Comment:Estimated GFR was ca lculated using the CKD-EPIcr (2020) equation refit without race. The equation is recommended by the National Kidney Foundation - [employer] Neph[employer] Task Force. Blood VENOUS BLOOD / Unknown Venipuncture / Unknown 11/14/2024 7:49 AM EDT 11/14/2024 9:01 AM EDT us Fabrizio Anthony MD CHEMISTRY ORDERABLES Final Resul t Performing Organization Address City/[facility]/ZIP Co de Phone Number [facility] [address] [place] [address] * (ABNORMAL) HEMOGLOBIN A1C (07/27/2024 12:53 PM EST) Hgb A1C 6.7(H) 4.2 - 5.6 % 07/29/2024 5:40 AM EST [facility] Est. Avg Glucose 146 mg/dL 07/29/2024 5:40 AM EST [facility] Blood VENOUS BLOOD / Unknown Venipuncture / Unknown 07/27/2024 12:53 PM EST 07/27/2024 1:01 PM EST Narrative [facility] - 07/29/2024 5:40 AM EST REFERENCE RANGE: Normal: 4.0-5.6% Pre-diabetes: 5.7-6.4% Provisional diagnosis of diabetes: >6.4% Hgb F>10% and anything which shortens red cell survival, such as hemolytic anemia, or unstable hemoglobin variants such as HbSS, HbSC, or HbCC, will lower the HbA1c value associated with a given level of glycemic control. us Shira FLETCHER CHEMISTRY ORDERABLES Final Result Performing Organization Address City/[facility]/ZIP Co de Phone Number [facility] [address] [facility] , [place] [address] * (ABNORMAL) LIPID SCREEN (05/10/2024 5:56 AM EST) Cholesterol 129 <200 mg/dL 05/10/2024 6:44 AM EST [facility] [employer] [facility] Comment: < 200 Desirable 200 - 239 Borderline High >= 240 High Triglyceride 108 <150 mg/dL 05/10/2024 6:44 AM EST [facility], [facility] Comment: < 150 Normal 150 - 199 Borderline High 200 - 499 High >= 500 Very High HDL 38(L) >=40 mg/dL 05/10/2024 6:44 AM EST [employer] [facility] Comment: > 60 Optimal 40 - 60 Acceptable < 40 Low LDL Calculated 71 <100 mg/dL 05/10/2024 6:44 AM EST [employer] [facility] Comment: < 100 Optimal 100 - 129 Near or above optimal 130 - 159 Borderline High 160 - 189 High >= 190 Very High Non-HDL-C Calculated 91 <=129 mg/dL 05/10/2024 6:44 AM EST [employer] [facility] Comment: <130 Desirable 130-159 Above Desirable 160-189 Borderline High 190-219 High >= 220 Very High Fasting Specimen? No None 024 6:44 AM EST [facility] Blood VENOUS BLOOD / Unknown Venipuncture / Unknown 05/10/2024 5:56 AM EST 05/10/2024 6:13 AM EST us Merlin Renner MD CHEMISTRY ORDERABLES Final Resu lt [facility], [facility] [address] [facility] , [address] [place] [id number] [facility] [address] [place] [id number] * (ABNORMAL) MICROALBUMIN/CREATININE RATIO URINE (06/18/2021 9:48 PM EST) Pathologist [facility] Urine Albumin 111.9 mg/L 06/19/2021 1:53 AM EST [facility], [facility] Urine Creatinine 68.4 mg/dL 06/19/2021 1:53 AM EST [facility], [facility] Ur Albumin/Creat Ratio 164(H) 0 - 30 mg/g 06/19/2021 1:53 AM EST [facility] Urine URINE SPECIMEN COLLECTION / Unknown 06/18/2021 9:48 PM EST 06/18/2021 9:54 PM EST Jose Sullivan MD URINE ORDERABLES Final Result [facility] [address] [facility] , [place] [address] from Last 3 Months or Most Recently Relevant to Health Maintenance Insurance [place] O D-SNP [place] HMO D-SNP [place] Member Subscriber Plan / Payer (Ef fective 2015-Present) Name:Juana Wang Relation to Subscriber:Self Name:Juana Wang Payer ID:Not on file Group ID:Not on file Type:Not on file Address: [address] [facility] Advance Directives For more information, please contact: [phone] * Full Code (Latest Code Status on File) Date Activated Date Inactivated Comments 11/13/2024 9:47 PM 11/14/2024 11:12 PM * Full Code Date Activated Date Inactivated Comments 07/27/2024 2:02 PM 08/02/2024 8:20 PM * Full Code Date Activated Date Inactivated Comments 07/07/2024 9:16 AM 07/07/2024 9:41 PM * Full Code Date Activated Date Inactivated Comments 05/09/2024 12:44 PM 05/10/2024 6:38 PM * Full Code Date Activated Date Inactivated Comments 05/02/2024 9:32 PM 05/09/2024 12:37 PM Care Teams Controller Mechanic Relationship Specialty Start Date End Date Lakshmi Hinton MD [address] [place] [id number] PCP - General Family Medicine 06/03/16
--- OUTSIDE RECORDS SUMMARY | 2025-05-10 11:51 | XMS_ITS | Data Portability ---
Author Organization [facility] Address [address] [place] [address] Assessment Encounter Date Assessment Date Assessment LastModified by Organization Details LastModified Time 06/18/2023 06/18/2023 Goal BP 120-130/70-80's discussed Advised to spot check BP at home daily and alert office for consistently elevated readings >130/80's. Keep log of BP readings and bring to f/u appt. Reinforced importance of compliance with medications and ADA diet guidelines. Recommend BID blood glucose testing while keeping a log Will call with lab results when available. Call office for questions, concerns or issues f/u 2 weeks [email or web address] Not available 06/18/2023 16:53:41 06/29/2023 06/29/2023 Start Trulicity as written. Patient denies personal or family history of medullary thyroid carcinoma (MTC) and multiple endocrine neoplasia syndrome type 2. Reinforced importance of compliance with medications and ADA diet guidelines. reinforced target organ damage associated with uncontrolled type 2 diabetes. recommend BID blood glucose testing while keeping a log Educated on s/s that indicate need for immediate evaluation in the ED. Patient verbalized understanding. f/u 1 week [email or web address] Not available 07/08/2023 13:44:53 08/10/2024 08/10/2024 -Medications were reviewed and any necessary updates and renewals were made, patient instructed to complete as prescribed. -The potential side effects of medications were discussed. -Counseling was done on care goals and ways to prevent future hospitalization s. -Further treatment per orders listed below. [email or web address] Not available 08/10/2024 14:27:17 Plan of Treatment Reminders Order Date Submit Date Provider Last Modified By Organization Details Last Modified Time Details Appointments None recorded. Lab TSH + free T4, serum 2024 025 [facility], [address], Dhiraj F, [place], [address], 5 08:11:38 vitamin D, 25-hydroxy , total, serum 2024 025 [facility], [address], [place] [address], [place], [address], 5 08:11:39 HbA1c (hemoglobi n A1c), blood 2024 025 [facility], [address], [place] F, [place], [address], 5 08:11:39 CMP, serum or plasma 2024 025 [facility], [address], [place] F, [place], [address], 5 08:11:38 CBC w/ auto diff 2024 025 [facility], [address], [place] F, [place], [address], 5 08:11:38 lipid panel, serum 2024 025 [facility], [address], [place] F, [place], [address], 5 08:11:39 pro BNP (pro B-type natriureti c peptide), serum or plasma 2023 024 [facility], [address], [place] F, [place], [address], 4 08:36:06 HbA1c (hemoglobi n A1c), blood 2023 024 [facility], [address], [place] F, [place], [address], 4 04:36:51 CMP, serum or plasma 2023 024 [facility], [address], [place]ir[place] F, [place], [address], 4 04:36:49 lipid panel, serum 2023 024 [facility], [address], [place] F, [place], [address], 4 04:36:50 HbA1c (hemoglobi n A1c), blood 2021 022 [facility], [address] [place], [address], 2 14:46:01 Referral pulmonolog ist referral 2024 025 [email or web address] Anne Contreras MD, [address] [place], [address], 5 19:03:18 neurologis t referral [email or web address] [place] [address] Neurology, [address] [place] [address], [address], 4 16:05:30 Procedures None recorded. Surgeries None recorded. Imaging None recorded. Medication Orders albuterol sulfate HFA 90 mcg/actuat ion aerosol inhaler 2024 025 [facility], [address] [place], [address], 5 14:26:07 Trulicity 0.75 mg/0.5 mL subcutaneo us pen injector 2023 024 [facility], [address], [place], [address], 5 14:05:48 metoprolol succinate ER 100 mg tablet,ext ended release 24 hr 2023 024 [facility], [address] [place] [address], [address], 4 16:15:53 hydrochlor othiazide 12.5 mg capsule [address], [address], 4 16:15:51 FreeStyle Lite Strips [address], [address], 4 15:53:53 glipizide 5 mg tablet [address], [address], 4 16:15:52 atorvastat in 40 mg tablet [address], [address], 5 13:59:12 fenofibrat e 160 mg tablet 2023 [email or web address], [address], 5 14:00:27 furosemide 20 mg tablet 2021 022 [email or web address] [facility], [address] [place], [address], 4 15:32:52 lisinopril 40 mg tablet [email or web address] [place] [address] Pharmacy 1569, [address] [place], [address], 14:01:27 glipizide 5 mg tablet 2021 MARGA [facility], [address] [place] [address], [address], 14:34:02 atorvastat in 40 mg tablet [email or web address] [place] [address] Pharmacy 156, [address] [place] [address], [address], 13:59:12 fenofibrat e 160 mg tablet [email or web address] [place] [address] Pharmacy 1569, [address] [place] [address], [address], 14:00:27 Lyrica 150 mg capsule 2021 [email or web address] [facility], [address] [place] [address], [address], 10:27:25 hydrocodon e 10 mg-acetami nophen 325 mg tablet 2021 [email or web address] [facility], [address] [place] [address], [address], 09:29:17 Patient TargetsNo targets recorded. Patient Instructions Encounter Date Encounter Id Patient Instructions Last Modified By Organization Details Last Modified Time 06/19/2024 [id number] medical record request* [email or web address] Not available 11/10/2024 11:07:13 08/10/2024 [id number] heart failure: care instructions [email or web address] Not available 08/10/2024 14:27:13 learning about heart failure [email or web address] Not available 08/10/2024 14:27:13 All questions answered and pt/guardian satisfied with treatment plan. Call with changes RTC or ED if symptoms change or worsen Keep next interval checkup Cont. chronic meds as prescribed Chronic conditions are stable Discussed natural and expected course of this diagnosis and need to alert the office if symptoms do not follow expected course or if any worsens [email or web address] Not available 08/10/2024 14:27:40 Reason for Referral Neurologist Referral for Dave mor Referring Physician: Margot Gallardo, Family Medicine, Encounter Date: 06/29/2023 [employer] Referral for A cute hypoxemic respiratory failure Referring Physician: Rufino Butler, Family Medicine, Encounter Date: 08/10/2024 Results Created Date Observation Date Name Description Value Unit Range Abnormal Flag Note LastModifiedBy Organization Detail LastModifiedTime 02/24/2002/23/2022 HbA1c (hemo globi n A1c), blood HbA1C 6.8 % Not Available [facility] [address] [place], [address], 02/23/2022 14:03:55 06/18/19 24 06/19/2023 COMP. METAB OLIC PANEL (14) glucose 265 mg/dL 70-99 above high normal Not Available [facility] ([facility]) [address] [place], [address], 06/19/2023 04:36:49 06/18/19 24 06/19/2023 COMP. METAB OLIC PANEL (14) BUN 22 mg/dL 6-24 Not Available [facility] ([facility] [address] [place], [address], 06/19/2023 04:36:49 06/18/19 24 06/19/2023 COMP. METAB OLIC PANEL (14) creatinine 0.85 mg/dL 0.57-1 .00 Not Available [facility] ([facility]) [address] [place], [address], 06/19/2023 04:36:49 06/18/19 24 06/19/2023 COMP. METAB OLIC PANEL (14) eGFR 84 mL/mi n/1.7 3 >59 Not Available [facility] ([facility] [address] [facility], [place], [address], 06/19/2023 04:36:49 06/18/19 24 06/19/2023 COMP. METAB OLIC PANEL (14) BUN/creatini ne ratio 26 9-23 above high normal Not Available [facility] ([facility] [address] [place], [address], 06/19/2023 04:36:49 06/18/19 24 06/19/2023 COMP. METAB OLIC PANEL (14) sodium 140 mmol/ L 134-14 4 Not Available [facility] ([facility] [address] [place] [place], [address], 06/19/2023 04:36:49 06/18/19 24 06/19/2023 COMP. METAB OLIC PANEL (14) potassium 4.2 mmol/ L 3.5-5. 2 Not Available [facility] ([facility] [address] [place], [address], 06/19/2023 04:36:49 06/18/19 24 06/19/2023 COMP. METAB OLIC PANEL (14) chloride 98 mmol/ L 96-106 Not Available [facility] [address] [place], [address], 06/19/2023 04:36:49 06/18/19 24 06/19/2023 COMP. METAB OLIC PANEL (14) carbon dioxide, total 26 mmol/ L 20-29 Not Available [facility] [address] [place], [address], 06/19/2023 04:36:49 06/18/19 24 06/19/2023 COMP. METAB OLIC PANEL (14) calcium 9.6 mg/dL 8.7-10 .2 Not Available [facility] [address] [place], [address], 06/19/2023 04:36:49 06/18/19 24 06/19/2023 COMP. METAB OLIC PANEL (14) protein, total 6.0 g/dL 6.0-8. 5 Not Available [facility] [address] [place], [address], 06/19/2023 04:36:49 06/18/19 24 06/19/2023 COMP. METAB OLIC PANEL (14) albumin 3.3 g/dL 3.9-4. 9 below low normal Not Available [facility] [address] [place], [address], 06/19/2023 04:36:49 06/18/19 24 06/19/2023 COMP. METAB OLIC PANEL (14) globulin, total 2.7 g/dL 1.5-4. 5 Not Available [facility] [address] [place], [address], 06/19/2023 04:36:49 06/18/19 24 06/19/2023 COMP. METAB OLIC PANEL (14) A/G ratio 1.2 1.2-2. 2 Not Available [facility] [address] [place], [address], 06/19/2023 04:36:49 06/18/19 24 06/19/2023 COMP. METAB OLIC PANEL (14) bilirubin, total <0.2 mg/dL 0.0-1. 2 Not Available [facility] [address] [place], [address], 06/19/2023 04:36:49 06/18/19 24 06/19/2023 COMP. METAB OLIC PANEL (14) alkaline phosphatase 105 IU/L 44-121 Not Available [facility] [address] [place], [address], 06/19/2023 04:36:49 06/18/19 24 06/19/2023 COMP. METAB OLIC PANEL (14) AST (SGOT) 13 IU/L 0-40 Not Available [facility] [address] [place], [address], 06/19/2023 04:36:49 06/18/19 24 06/19/2023 COMP. METAB OLIC PANEL (14) ALT (SGPT) 10 IU/L 0-32 Not Available [facility] [address] [place], [address], 06/19/2023 04:36:49 06/18/19 24 06/19/2023 LIPID PANEL cholesterol, total 217 mg/dL 100-19 9 above high normal Not Available [facility] [address] [place], [address], 06/19/2023 04:36:50 06/18/19 24 06/19/2023 LIPID PANEL triglyceride s 444 mg/dL 0-149 above high normal Not Available [facility] [address] [place], [address], 06/19/2023 04:36:50 06/18/19 24 06/19/2023 LIPID PANEL HDL cholesterol 44 mg/dL >39 Not Available [facility] [address] [place], [address], 06/19/2023 04:36:50 06/18/19 24 06/19/2023 LIPID PANEL VLDL cholesterol debra 74 mg/dL 5-40 above high normal Not Available [facility] [address] [place], [address], 06/19/2023 04:36:50 06/18/19 24 06/19/2023 LIPID PANEL LDL chol calc (nih) 99 mg/dL 0-99 Not Available [facility] [address] [place], [address], 06/19/2023 04:36:50 06/18/19 24 06/19/2023 LIPID PANEL comment: PURIFICATION SUPERVISOR Not Available [facility] [address] [facility], [place], [address], 06/19/2023 04:36:50 06/18/19 24 06/19/2023 HEMOG LOBIN A1C hemoglobin A1C 9.1 % 4.8-5. 6 above high normal Predi abete s: 5.7 - 6.4 Diabe roma: >6.4 Glyce pollo contr ol for adult s with diabe roma: <7.0 Not Available [facility] ([facility] [address] [facility], [place], [address], 06/19/2023 04:36:51 06/18/19 24 06/20/2023 NT-NH OBNP nt-probnp 1626 pg/mL 0-249 above high normal The follo wing cut-p oints have been sugge sted for the use of proBN P for the diagn ostic evalu ation of heart failu re (HF) in patie nts with acute dyspn ea: Modal ity Age Optim al Cut (year s) Point ----- ----- ----- ----- ----- ----- ----- ----- ----- ----- ---- Diagn osis (rule in HF) <50 450 pg/mL 50 - 75 900 pg/mL >75 1800 pg/mL Exclu leobardo (rule out HF) Age indep enden t 300 pg/mL Not Available [facility] [address] [facility], [place], [address], 06/20/2023 08:36:06 06/18/19 24 06/18/2023 MAK EN AUTHO RIZAT ION written authorizatio n Commen t Mak en Autho rizat ion Recei aleah. Autho rizat ion recei aleah from EREQ ADD 06-18 Logge d by Paulie Fields in Not Available [facility] ([facility] [address] [facility], [place], [address], 06/20/2023 08:36:07 06/19/1906/20/2024 TSH+F REE T4 TSH 3.390 uIU/m L 0.450- 4.500 normal Not Available [facility] [address] [facility], [place], [address], 06/20/2024 08:11:37 06/19/19 25 06/20/2024 TSH+F REE T4 T4,free(dire ct) 1.02 NG/dL 0.82-1 .77 normal Not Available [facility] [address] [facility], [place], [address], 06/20/2024 08:11:37 06/19/1906/20/2024 CBC WITH DIFFE RENTI AL/PL ATELE T WBC 8.5 x10e3 /uL 3.4-10 .8 normal Not Available [facility] ([facility] [address] [place], [address], 06/20/2024 08:11:38 06/19/19 25 06/20/2024 CBC WITH DIFFE RENTI AL/PL ATELE T RBC 4.50 x10e6 /uL 3.77-5 .28 normal Not Available [facility] [address] [place], [address], 06/20/2024 08:11:38 06/19/19 25 06/20/2024 CBC WITH DIFFE RENTI AL/PL ATELE T hemoglobin 12.0 g/dL 11.1-1 5.9 normal Not Available [facility] [address] [place], [address], 06/20/2024 08:11:38 06/19/19 25 06/20/2024 CBC WITH DIFFE RENTI AL/PL ATELE T hematocrit 38.8 % 34.0-4 6.6 normal Not Available [facility] [address] [place], [address], 06/20/2024 08:11:38 06/19/19 25 06/20/2024 CBC WITH DIFFE RENTI AL/PL ATELE T MCV 86 fL 79-97 normal Not Available [facility] [address] [place], [address], 06/20/2024 08:11:38 06/19/19 25 06/20/2024 CBC WITH DIFFE RENTI AL/PL ATELE T MCH 26.7 pg 26.6-3 3.0 normal Not Available [facility] [address] [place], [address], 06/20/2024 08:11:38 06/19/19 25 06/20/2024 CBC WITH DIFFE RENTI AL/PL ATELE T MCHC 30.9 g/dL 31.5-3 5.7 below low normal Not Available [facility] [address] [place], [address], 06/20/2024 08:11:38 06/19/19 25 06/20/2024 CBC WITH DIFFE RENTI AL/PL ATELE T RDW 14.2 % 11.7-1 5.4 Not Available [facility] [address] [place], [address], 06/20/2024 08:11:38 06/19/19 25 06/20/2024 CBC WITH DIFFE RENTI AL/PL ATELE T platelets 274 x10e3 /uL 150-45 0 normal Not Available [facility] [address] [place], [address], 06/20/2024 08:11:38 06/19/19 25 06/20/2024 CBC WITH DIFFE RENTI AL/PL ATELE T neutrophils 70 % not estab. normal Not Available [facility] [address] [facility], [place], [address], 06/20/2024 08:11:38 06/19/19 25 06/20/2024 CBC WITH DIFFE RENTI AL/PL ATELE T lymphs 21 % not estab. normal Not Available [facility] [address] [facility], [place], [address], 06/20/2024 08:11:38 06/19/19 25 06/20/2024 CBC WITH DIFFE RENTI AL/PL ATELE T monocytes 5 % not estab. normal Not Available [facility] [address] [facility], [place], [address], 06/20/2024 08:11:38 06/19/19 25 06/20/2024 CBC WITH DIFFE RENTI AL/PL ATELE T eos 3 % not estab. normal Not Available [facility] [address] [facility], [place], [address], 06/20/2024 08:11:38 06/19/19 25 06/20/2024 CBC WITH DIFFE RENTI AL/PL ATELE T basos 1 % not estab. normal Not Available [facility] [address] [place], [address], 06/20/2024 08:11:38 06/19/19 25 06/20/2024 CBC WITH DIFFE RENTI AL/PL ATELE T immature cells PURIFICATION SUPERVISOR Not Available [facility] [address] [place], [address], 06/20/2024 08:11:38 06/19/19 25 06/20/2024 CBC WITH DIFFE RENTI AL/PL ATELE T neutrophils (absolute) 5.9 x10e3 /uL 1.4-7. 0 normal Not Available [facility] [address] [facility] [place], [address], 06/20/2024 08:11:38 06/19/19 25 06/20/2024 CBC WITH DIFFE RENTI AL/PL ATELE T lymphs (absolute) 1.8 x10e3 /uL 0.7-3. 1 normal Not Available [facility] [address] [facility], [place], [address], 06/20/2024 08:11:38 06/19/19 25 06/20/2024 CBC WITH DIFFE RENTI AL/PL ATELE T monocytes(ab solute) 0.4 x10e3 /uL 0.1-0. 9 normal Not Available [facility] [address] [facility], [place], [address], 06/20/2024 08:11:38 06/19/19 25 06/20/2024 CBC WITH DIFFE RENTI AL/PL ATELE T eos (absolute) 0.3 x10e3 /uL 0.0-0. 4 normal Not Available [facility] [address] [facility], [place], [address], 06/20/2024 08:11:38 06/19/19 25 06/20/2024 CBC WITH DIFFE RENTI AL/PL ATELE T baso (absolute) 0.0 x10e3 /uL 0.0-0. 2 normal Not Available [facility] [address] [facility], [place], [address], 06/20/2024 08:11:38 06/19/19 25 06/20/2024 CBC WITH DIFFE RENTI AL/PL ATELE T immature granulocytes 0 % not estab. Not Available [facility] [address] [facility], [place], [address], 06/20/2024 08:11:38 06/19/19 25 06/20/2024 CBC WITH DIFFE RENTI AL/PL ATELE T immature grans (abs) 0.0 x10e3 /uL 0.0-0. 1 Not Available [facility] [address] [place], [address], 06/20/2024 08:11:38 06/19/19 25 06/20/2024 CBC WITH DIFFE RENTI AL/PL ATELE T NRBC PURIFICATION SUPERVISOR Not Available [facility] [address], [place], [address], 06/20/2024 08:11:38 06/19/19 25 06/20/2024 CBC WITH DIFFE RENTI AL/PL ATELE T hematology comments: PURIFICATION SUPERVISOR Not Available [facility] [address] [place], [address], 06/20/2024 08:11:38 06/19/19 25 06/20/2024 COMP. METAB OLIC PANEL (14) glucose 137 mg/dL 70-99 above high normal Not Available [facility] [address] [place], [address], 06/20/2024 08:11:38 06/19/19 25 06/20/2024 COMP. METAB OLIC PANEL (14) BUN 28 mg/dL 6-24 above high normal Not Available [facility] [address] [place], [address], 06/20/2024 08:11:38 06/19/19 25 06/20/2024 COMP. METAB OLIC PANEL (14) creatinine 1.47 mg/dL 0.57-1 .00 above high normal Not Available [facility] [address] [place] [place], [address], 06/20/2024 08:11:38 06/19/19 25 06/20/2024 COMP. METAB OLIC PANEL (14) eGFR 43 mL/mi n/1.7 3 >59 below low normal Not Available [facility] [address] [place], [address], 06/20/2024 08:11:38 06/19/19 25 06/20/2024 COMP. METAB OLIC PANEL (14) BUN/creatini ne ratio 19 9-23 normal Not Available [facility] [address] [place], [address], 06/20/2024 08:11:38 06/19/19 25 06/20/2024 COMP. METAB OLIC PANEL (14) sodium 140 mmol/ L 134-14 4 normal Not Available [facility] [address] [place], [address], 06/20/2024 08:11:38 06/19/19 25 06/20/2024 COMP. METAB OLIC PANEL (14) potassium 4.7 mmol/ L 3.5-5. 2 normal Not Available [facility] [address] [place], [address], 06/20/2024 08:11:38 06/19/19 25 06/20/2024 COMP. METAB OLIC PANEL (14) chloride 104 mmol/ L 96-106 normal Not Available [facility] [address] [place], [address], 06/20/2024 08:11:38 06/19/19 25 06/20/2024 COMP. METAB OLIC PANEL (14) carbon dioxide, total 21 mmol/ L 20-29 normal Not Available [facility] [address] [place], [address], 06/20/2024 08:11:38 06/19/19 25 06/20/2024 COMP. METAB OLIC PANEL (14) calcium 9.5 mg/dL 8.7-10 .2 normal Not Available [facility] [address] [place], [address], 06/20/2024 08:11:38 06/19/19 25 06/20/2024 COMP. METAB OLIC PANEL (14) protein, total 7.2 g/dL 6.0-8. 5 normal Not Available [facility] [address] [place], [address], 06/20/2024 08:11:38 06/19/19 25 06/20/2024 COMP. METAB OLIC PANEL (14) albumin 4.1 g/dL 3.9-4. 9 normal Not Available [facility] [address] [place], [address], 06/20/2024 08:11:38 06/19/19 25 06/20/2024 COMP. METAB OLIC PANEL (14) globulin, total 3.1 g/dL 1.5-4. 5 Not Available [facility] [address] [place], [address], 06/20/2024 08:11:38 06/19/19 25 06/20/2024 COMP. METAB OLIC PANEL (14) bilirubin, total 0.3 mg/dL 0.0-1. 2 normal Not Available [facility] [address] [place], [address], 06/20/2024 08:11:38 06/19/19 25 06/20/2024 COMP. METAB OLIC PANEL (14) alkaline phosphatase 132 IU/L 44-121 above high normal Not Available [facility] [address] [place], [address], 06/20/2024 08:11:38 06/19/19 25 06/20/2024 COMP. METAB OLIC PANEL (14) AST (SGOT) 11 IU/L 0-40 normal Not Available [facility] [address] [facility] [place], [address], 06/20/2024 08:11:38 06/19/19 25 06/20/2024 COMP. METAB OLIC PANEL (14) ALT (SGPT) 8 IU/L 0-32 normal Not Available [facility] [address] [place], [address], 06/20/2024 08:11:38 06/19/19 25 06/20/2024 LIPID PANEL cholesterol, total 160 mg/dL 100-19 9 normal Not Available [facility] [address] [place], [address], 06/20/2024 08:11:39 06/19/19 25 06/20/2024 LIPID PANEL triglyceride s 177 mg/dL 0-149 above high normal Not Available [facility] [address] [facility], [place], [address], 06/20/2024 08:11:39 06/19/19 25 06/20/2024 LIPID PANEL HDL cholesterol 51 mg/dL >39 normal Not Available [facility] [address] [facility], [place], [address], 06/20/2024 08:11:39 06/19/19 25 06/20/2024 LIPID PANEL VLDL cholesterol debra 30 mg/dL 5-40 Not Available [facility] [address] [facility], [place], [address], 06/20/2024 08:11:39 06/19/19 25 06/20/2024 LIPID PANEL LDL chol calc ([facility]) 79 mg/dL 0-99 Not Available [facility] [address] [place], [address], 06/20/2024 08:11:39 06/19/19 25 06/20/2024 LIPID PANEL LDL calc comment: PURIFICATION SUPERVISOR Not Available [facility] [address] [facility], [place], [address], 06/20/2024 08:11:39 06/19/19 25 06/20/2024 HEMOG LOBIN A1C hemoglobin A1C 7.0 % 4.8-5. 6 above high normal Predi abete s: 5.7 - 6.4 Diabe roma: >6.4 Glyce pollo contr ol for adult s with diabe roma: <7.0 Not Available [facility] [address], [place], [address], 06/20/2024 08:11:39 06/19/19 25 06/20/2024 VITAM IN D, 25-HY DROXY vitamin D, 25-hydroxy 8.6 NG/mL 30.0-1 00.0 below low normal Vitam in D defic iency has been defin ed by the Insti tute of Medic ine and an Endoc rine Socie ty pract ice guide line as a level of serum 25-OH vitam in D less than 20 ng/mL (1,2) . The Endoc rine Socie ty went on to furth er defin e vitam in D insuf ficie ncy as a level betwe en 21 and 29 ng/mL (2). 1. IOM (Inst itute of Medic ine). 2009. Dieta ry refer ence melanie es for calci um and D. Yohannes santillan [place]: [facility] Press . 2. Pako patel MF, Pamela loomis [place], Donna off-F errar i NAIR, et al. Evalu ation , treat ment, and preve ntion of vitam in D defic iency : an Endoc rine Socie ty clini debra pract ice guide line. JCEM. 2010; 96(7) :1911 -30. Not Available [facility] [address], [place], [address], 06/20/2024 08:11:39 08/17/19 24 07/22/2023 US, echo arscoto gram No observ ation record ed. [email or web address] [facility] [place], [address], 08/17/2023 15:33:09 Result Notes None recorded. Problems Name Problem SNOMED Code Status Onset Date Resolution Date Notes Provider Name and Address Organization Details Recorded Time Diabetes mellitus 59388785 Active 2016 [facility] Available [facility] 3 16:24:48 Hypertensive disorder 44338850 Active 2016 Not Available [facility] 3 16:24:48 Amputated foot 203520614 Active 2016 Not Available [facility] 3 16:24:48 Cerebrovascu lar accident 407930829 Active 2017 mini stroke per pt, was in [facility] Not Available [facility] 3 16:24:48 Hyperlipidem ia 48144055 Active 2017 Not Available [facility] 3 16:24:48 Depressive disorder 08326430 Active 2019 Not Available [facility] 3 16:24:48 Neuropathy due to diabetes mellitus 645290077 Active 2019 Not Available [facility] 3 16:24:48 Amputated below knee 394236340 Active 2023 left Margot Gallardo, FAREED [address], [place], [address] , [place] - [facility] 4 16:48:09 Diastolic heart failure 650901897 Active 2023 Margot Gallardo, LICENSED MASSAGE THERAPIST [address], [place], [address] , [place] - [facility] 4 12:02:21 Type 2 diabetes mellitus 68784875 Active 2024 Rufino Butler PA-C [address], [place], [address] , [place] - [facility] 5 15:05:15 Dyspnea on exertion 44651742 Active 2024 Rufino Butler PA-C [address], [place], [address] , [place] [facility] 5 14:25:18 Acute hypoxemic respiratory failure 816637869 Active 2024 Rufino Butler PA-C [address], [place], [address] , [facility] - [facility] 5 14:26:20 Problem Notes None recorded. Procedures Surgical History Date Name Laterality Status Provider Name and Address Organization Details Recorded Time 08/11/19 25 Medication Reconcilliation completed Mary Kamara [place] - [facility] 08/10/2024 13:33:08 05/24/19 22 amputation of left foot [facility]18/2023 15:26:46 02/08/20 20 Diastolic B/P greater than or equal to 90 mm Hg completed Linda Baltazar DC - [facility] 02/08/2020 15:58:15 02/08/20 20 Systolic B/P greater than or equal to 140 mm Hg completed [facility] 15:58:12 04/29/20 18 Diastolic B/P greater than or equal to 90 mm Hg completed Fiona Starkey RN [address], [place], [address], [facility] 04/29/2018 13:27:21 04/29/20 18 Systolic B/P greater than or equal to 140 mm Hg completed Fiona Starkey RN [address], [place], [address], [facility] - [facility] 04/29/2018 13:27:27 04/29/20 18 A1C level 9.1 and above completed Fiona Starkey RN [address], [place], [address] - [facility] 04/29/2018 13:27:09 Amputation of toe completed Melyssa Nieves [facility] 07/17/2016 16:24:13 Imaging Results None recorded. Procedure Notes None recorded. Medical Equipment None Reported. Allergies Allergen ID Allergen Name Allergen Category Reaction Reaction Severity Criticality Documentation Date Start Date Code Code System Note Provider Name and Address Organization Details Recorded Time 052709 fluconazo le medicatio n Not available Not available Not available 05/03/20252015 4450 RxNorm Not Available marga - External Data [facility] - prod 5 08:34:59 528832 gabapenti n medicatio n Not available Not available low 05/03/20252016 99100 RxNorm unrec ogniz ed react ion (text : Nause a And Vomit ing, code: 89376 000) (from [facility]) Not Available marga - External Data Service - prod 5 08:36:05 537916 dulagluti de medicatio n Not available Not available Not available 05/03/20252023 88490 91 RxNorm ketoa cidos is unrec ogniz ed react ion (text : Other (See Comme nts), code: 68427 003) (from [facility]) Not Available marga - External Data Service - prod 5 08:36:05 14484 Diflucan medicatio n Not available Not available Not available 02/28/2016201081 3 RxNorm Not Available [facility] 6 08:07:52 09781 Product containin g penicilli n (product) medicatio n rash Not available Not available 02/28/20162009 83439 8001 SNOMED React ion: rash; Not Available [facility] 6 08:37:01 32949 gabapenti n medicatio n nausea Not available Not available 02/28/20162014 67061 RxNorm React ion: GI upset ; Not Available [facility] 6 09:39:41 Medications Name Sig Start Date Stop Date Status Note LastModified by Organization Details LastModified Time Prescript ion - Prior Authoriza tion Request 08/31 completed Not Available Not Available Not Available Zocor 20 mg tablet take 1 tablet (20 mg) by oral route once daily in the evening 12/04 completed Zocor 20 mg oral tablet;R ecorded Status: Recorded on: 08/18/19 15 3:24PM;D iscontin ued Status: Disconti nued on: 12/05/19 16 9:55AM;U ser: grayn;Es t. Completi on: 11/16/19 15 Not Available Not Available Not Available atorvasta tin 40 mg tablet TAKE 1 TABLET BY MOUTH ONCE DAILY active Not Available Not Available No t Available metformin 500 mg tablet take 1 tablet (500 mg) by oral route 2 times per day with morning and evening meals 02/12 completed metformi n 500 mg oral tablet;R ecorded Status: Recorded on: 02/13/20 14 3:45PM;D iscontin ued Status: Disconti nued on: 02/13/20 14 4:20PM;U ser: coreen Not Available Not Available Not Available bupropion HCl SR 150 mg tablet,12 hr sustained -release TAKE 1 TABLET BY MOUTH TWICE DAILY 02/07 completed Not Available Not Available Not Available atorvasta tin 80 mg tablet active Not Available Not Available Not Available doxycycli ne hyclate 100 mg capsule Take 1 capsule twice a day by oral route for 10 days. 07/26 completed Not Available Not Available Not Available Delsym 12 hour 30 mg/5 mL oral suspensio n,extende d release take 5 millilit ers by oral route 2 times a day for 5 days 06/11 completed Delsym 12 hour 30 mg/5 mL oral suspensi on,exten ded rel 12 hr;Recor ded Status: Recorded on: 10/31/19 15 3:21PM;D iscontin ued Status: Disconti nued on: 06/11/19 16 10:39AM; User: Yara Brody on: 11/05/19 15;Print ed: 10/31/19 15 Not Available Not Available Not Available clindamyc in HCl 300 mg capsule 02/07 completed Not Available Not Available Not Available atorvasta tin 10 mg tablet Take 1 tablet every day by oral route. 08/02 completed Not Available Not Available Not Available azithromy singh 250 mg tablet take 2 tablets (500 mg) by oral route once daily for 1 day then 1 tablet (250 mg) by oral route once daily for 4 days 04/05 completed Not Available Not Available Not Available aspirin 325 mg tablet Take 1 tablet every day by oral route. 2017 active Not Available Not Available Not Avai lable glyburide 5 mg tablet take 1 tablet (5 mg) by oral route daily for 30 days 01/09 completed glyburid e 5 mg oral tablet;R ecorded Status: Recorded on: 02/05/20 10 8:23AM;D iscontin ued Status: Disconti nued on: 01/10/20 11 10:36AM; User: mohna; Est. Completi on: 03/06/20 10 Not Available Not Available Not Available pravastat in 40 mg tablet take 1 tablet (40 mg) by oral route once daily for 30 days 01/09 completed pravasta tin 40 mg oral tablet;R ecorded Status: Recorded on: 01/15/20 10 10:17AM; Disconti nued Status: Disconti nued on: 01/10/20 11 10:36AM; User: [email or web address]; Est. Completi on: 04/14/20 10;Indic ation: Primary Preventi on of Coronary Heart Disease - () Not Available Not Available Not Available ibuprofen 800 mg tablet TAKE 1 TABLET BY MOUTH EVERY 6 TO 8 HOURS active Not Available Not Available No t Available benzonata te 200 mg capsule Take 1 capsule 3 times a day by oral route as needed. 07/26 completed Not Available Not Available Not Available hydrocodo ne 5 mg-acetam inophen 325 mg tablet 02/07 completed Not Available Not Available Not Available Keflex 500 mg capsule take 1 capsule (500 mg) by oral route every 6 hours for 7 days 01/09 completed Keflex 500 mg oral capsule; Recorded Status: Recorded on: 12/05/19 16 10:27AM; Disconti nued Status: Disconti nued on: 01/10/20 16 4:21PM;U ser: colvinc Not Available Not Available Not Available lisinopri l 20 mg tablet TAKE 1 TABLET BY MOUTH ONCE DAILY active Not Available Not Available No t Available glipizide 10 mg tablet take 1 tablet (10 mg) by oral route 2 times per day before meals for 30 days 12/04 completed glipizid e 10 mg oral tablet;R ecorded Status: Recorded on: 08/18/19 15 3:24PM;D iscontin ued Status: Disconti nued on: 12/05/19 16 9:55AM;U ser: grayn;Es t. Completi on: 11/16/19 15 Not Available Not Available Not Available Medrol (Nadir) 4 mg tablets in a dose pack take as directed for 6 days 07/26 completed Not Available Not Available Not Available Prilosec 20 mg capsule,d elayed release take 1 capsule (20 mg) by oral route once daily before a meal 06/11 completed Prilosec 20 mg oral capsule, delayed release( /EC);R ecorded Status: Recorded on: 02/21/20 14 4:18PM;D iscontin ued Status: Disconti nued on: 06/11/19 16 10:39AM; User: [email or web address];Dorina baker Completi on: 03/22/20 14;Indic ation: Gastroes ophageal Reflux - (5308 );Prin aleksander: 02/21/20 14 Not Available Not Available Not Available metoprolo l succinate ER 100 mg tablet,ex tended release 24 hr TAKE 1 TABLET BY MOUTH ONCE DAILY active Not Available Not Available No t Available Lantus U-100 Insulin 100 unit/mL subcutane ous solution inject by subcante ious route 60 units at bedtime 02/12 completed Lantus 100 unit/mL subcutan eous solution ;Recorde d Status: Recorded on: 03/21/20 13 3:15PM;D iscontin ued Status: Disconti nued on: 02/13/20 14 3:45PM;U ser: luis fernando lozano;Est. Completi on: 04/20/20 13;Print ed: 03/21/20 13 Not Available Not Available Not Available clindamyc in HCl 150 mg capsule TAKE 1 CAPSULE BY MOUTH THREE TIMES DAILY TAKE UNTIL RX IS GONE 06/19 completed Not Available Not Available Not Available promethaz ine 6.25 mg-codein e 10 mg/5 mL syrup Take 5 mL every 6 hours by oral route. 07/26 completed Not Available Not Available Not Available potassium chloride ER 10 mEq tablet,ex tended release TAKE 1 TABLET BY MOUTH ONCE DAILY active Not Available Not Available No t Available clopidogr el 75 mg tablet TAKE 1 TABLET BY MOUTH ONCE DAILY active Not Available Not Available No t Available sulfameth oxazole 800 mg-trimet hoprim 160 mg tablet TAKE 1 TABLET BY MOUTH TWICE DAILY active Not Available Not Available No t Available hydrocodo ne 10 mg-acetam inophen 325 mg tablet TAKE 1 TABLET BY MOUTH TWICE DAILY NEEDED FOR PAIN 08/29 completed Not Available Not Available Not Available bupropion HCl SR 100 mg tablet,12 hr sustained -release TAKE 1 TABLET BY MOUTH ONCE DAILY active Not Available Not Available No t Available oxycodone -acetamin ophen 5 mg-325 mg tablet 07/17 completed Not Available Not Available Not Available Zofran 8 mg tablet Take 1 tablet every 8 hours by oral route as needed for 2 days. 07/26 completed Not Available Not Available Not Available Depo-Prov era 150 mg/mL intramusc ular suspensio n 07/15 completed Depo-Pro vera 150 mg/mL intramus cular suspensi on;Recor ded Status: Recorded on: 01/10/20 11 10:39AM; Disconti nued Status: Disconti nued on: 07/15/19 12 3:08PM;U ser: rhoda; Indicati on: Pregnanc y Contrace ption - (18.V259 00) Not Available Not Available Not Available doxycycli ne monohydra te 100 mg capsule TAKE 1 CAPSULE BY MOUTH TWICE DAILY FOR 10 DAYS 02/23 completed Not Available Not Available Not Available gemfibroz il 600 mg tablet Take 1 tablet every day by oral route. 08/30 completed Not Available Not Available Not Available erythromy singh 5 mg/gram (0.5 %) eye ointment apply 1 cm ribbon into the lower conjunct ival sac in the left eye by ophthalm ic route 2 times per day for 7 days 01/09 completed erythrom ycin 5 mg/gram (0.5 %) ophthalm ic ointment ;Prescri be Status: Prescrib ed on: 12/05/19 16 10:24AM; Disconti nued Status: Disconti nued on: 01/10/20 16 4:21PM;U ser: bettien;Es t. Completi on: 12/12/19 16;Indic ation: Bacteria l Conjunct ivitis - (06.3723 01);Phar macyVeri fied: 12/05/19 16 10:24AM Not Available Not Available Not Available metformin 1,000 mg tablet take 1 tablet (1,000 mg) by oral route 2 times per day with morning and evening meals for 30 days 08/31 completed Not Available Not Available Not Available lisinopri l 10 mg tablet 04/05 completed Not Available Not Available Not Available hydrochlo rothiazid e 12.5 mg capsule TAKE 1 CAPSULE BY MOUTH ONCE DAILY active Not Available Not Available No t Available gabapenti n 300 mg capsule take 1 capsule (300 mg) by oral route 3 times per day for 30 days 08/17 completed gabapent in 300 mg oral capsule; Recorded Status: Recorded on: 02/21/20 14 4:24PM;D iscontin ued Status: Disconti nued on: 08/18/19 15 2:38PM;U ser: grayn;Es t. Completi on: 05/21/20 14;Print ed: 02/21/20 14 Not Available Not Available Not Available lisinopri l 5 mg tablet take 1 tablet (5 mg) by oral route once daily 07/17 completed lisinopr il 5 mg oral tablet;R ecorded Status: Recorded on: 09/04/19 15 1:55PM;U ser: rossj; Printed: 09/04/19 15 Not Available Not Available Not Available Baby Aspirin 81 mg chewable tablet Chew 1 tablet every day by oral route. 07/26 completed Not Available Not Available Not Available furosemid e 20 mg tablet TAKE 1 TABLET BY MOUTH A ONE TIME DOSE active Not Available Not Available No t Available metoprolo l succinate ER 25 mg tablet,ex tended release 24 hr TAKE 1 TABLET BY MOUTH ONCE DAILY 02/23 completed Not Available Not Available Not Available ergocalci ferol (vitamin D2) 1,250 mcg (50,000 unit) capsule TAKE 1 CAPSULE BY MOUTH ONCE A WEEK active Not Available Not Available No t Available lisinopri l 40 mg tablet TAKE 1 TABLET BY MOUTH AT BEDTIME 06/19 completed Not Available Not Available Not Available cefdinir 300 mg capsule TAKE 1 CAPSULE BY MOUTH TWICE DAILY 06/18 completed Not Available Not Available Not Available fluticaso ne propionat e 50 mcg/actua tion nasal spray,shorty pension 07/26 completed Not Available Not Available Not Available doxycycli ne hyclate 100 mg tablet 07/17 completed Not Available Not Available Not Available glipizide 5 mg tablet TAKE 1 TABLET BY MOUTH ONCE DAILY active Not Available Not Available No t Available amoxicill in 875 mg-potass ium clavulana te 125 mg tablet 07/17 completed Not Available Not Available Not Available Ventolin HFA 90 mcg/actua tion aerosol inhaler INHALE 2 PUFFS BY MOUTH EVERY 4 TO 6 HOURS active Not Available Not Available No t Available Dallergy 12 mg-20 mg-2.5 mg tablet,ex tended release take 1 tablet by oral route every 12 hours as needed for 10 days 01/09 completed Dallergy 12-20-2. 5 mg oral tablet extended release 12 hr;Recor ded Status: Recorded on: 08/14/19 11 2:21PM;D iscontin ued Status: Disconti nued on: 01/10/20 11 10:32AM; User: mohan; Est. Completi on: 08/24/19 11;Print ed: 08/14/19 11 Not Available Not Available Not Available Bactrim 400 mg-80 mg tablet one po bid for ten days 04/08 completed Bactrim 400-80 mg oral tablet;R ecorded Status: Recorded on: 02/15/20 12 5:48PM;D iscontin ued Status: Disconti nued on: 04/08/20 12 3:32PM;U ser: gored;Es t. Completi on: 02/25/20 12;Print ed: 02/15/20 12 Not Available Not Available Not Available Gyne-Lotr imin 2 % vaginal cream apply 1 applicat orful by vaginal route daily for 3 days 02/20 completed Gyne-Lot rimin 2 % vaginal cream;Re corded Status: Recorded on: 02/13/20 14 4:20PM;D iscontin ued Status: Disconti nued on: 02/21/20 14 3:49PM;U ser: grayn;Es t. Completi on: 02/16/20 14;Print ed: 02/13/20 14 Not Available Not Available Not Available rosuvasta tin 40 mg tablet TITD 08/30 completed Not Available Not Available Not Available bupropion HCl XL 150 mg 24 hr tablet, extended release Take 1 tablet by mouth once daily 02/23 completed Not Available Not Available Not Available metoprolo l tartrate 25 mg tablet Take 1 tablet by mouth twice daily 02/23 completed Not Available Not Available Not Available duloxetin e 20 mg capsule,d elayed release TAKE ONE (1) CAPSULE EVERY DAY BY ORAL ROUTE FOR 30 DAYS. 06/19 completed Not Available Not Available Not Available duloxetin e 30 mg capsule,d elayed release TAKE 1 CAPSULE BY MOUTH ONCE DAILY active Not Available Not Available No t Available fenofibra te 160 mg tablet TAKE ONE (1) TABLET BY MOUTH ONCE DAILY 06/19 completed Not Available Not Available Not Available GlucaGen HypoKit 1 mg Injection Take 1 mg as needed by injectio n route. 02/23 completed Not Available Not Available Not Available pregabali n 75 mg capsule TAKE 1 CAPSULE BY MOUTH TWICE DAILY 02/23 completed Not Available Not Available Not Available pregabali n 150 mg capsule TAKE 1 CAPSULE BY MOUTH TWICE DAILY active Not Available Not Available No t Available Lyrica 50 mg capsule take 1 capsules (50 mg) by oral route 3 times per day for 30 days 06/11 completed Lyrica 50 mg oral capsule; Recorded Status: Recorded on: 08/18/19 15 3:24PM;D iscontin ued Status: Disconti nued on: 06/11/19 16 10:39AM; User: Yara Brody on: 09/17/19 15;Indic ation: Diabetic Peripher al Neuropat hy - () Not Available Not Available Not Available Actoplus MET 15 mg-500 mg tablet 05/26 completed Actoplus MET 15-500 mg oral tablet;R ecorded Status: Recorded on: 01/10/20 11 10:36AM; Disconti nued Status: Disconti nued on: 05/26/19 12 2:06PM;U ser: christine Garciati on: Type 2 Diabetes Mellitus - () Not Available Not Available Not Available ibuprofen 1 tid with food 02/12 completed ibuprofe n 800mg;Re corded Status: Recorded on: 01/04/20 12 4:23PM;D iscontin ued Status: Disconti nued on: 02/13/20 14 3:45PM;U ser: markesbe ryh;Est. Completi on: 06/02/19 13;Indic ation: - (-5);Amanda nted: 01/04/20 12 Not Available Not Available Not Available Keflex 1 bid 11/15 completed keflex 500mg;Re corded Status: Recorded on: 05/04/20 12 11:38AM; Disconti nued Status: Disconti nued on: 11/16/19 13 4:42PM;U ser: markesbe ryh;Est. Completi on: 05/14/20 12;Indic ation: - (-5);Amanda nted: 05/04/20 12 Not Available Not Available Not Available lisinopri l 1 qd 04/08 completed lisinopr il 20 mg;Recor ded Status: Recorded on: 01/04/20 12 4:26PM;D iscontin ued Status: Disconti nued on: 04/08/20 12 3:32PM;U ser: markesbe ryh;Est. Completi on: 02/03/20 12;Indic ation: None Selected - (-5);Amanda nted: 01/04/20 12 Not Available Not Available Not Available metformin 1 bid 02/12 completed metformi n 1000mg;R ecorded Status: Recorded on: 05/10/20 13 3:12PM;D iscontin ued Status: Disconti nued on: 02/13/20 14 3:45PM;U ser: markesbe ryh;Est. Completi on: 09/08/19 14;Indic ation: - (-5) Not Available Not Available Not Available bacitraci n apply bid 02/12 completed bacitrac in;Recor ded Status: Recorded on: 05/10/20 13 3:12PM;D iscontin ued Status: Disconti nued on: 02/13/20 14 3:45PM;U ser: yesicabe blake;Est. Completi on: 05/20/20 13;Indic ation: - (-5) Not Available Not Available Not Available Septra DS 1 bid 05/04 completed janra ds;Recor ded Status: Recorded on: 11/18/19 12 2:41PM;D iscontin ued Status: Disconti nued on: 05/04/20 12 11:20AM; User: luis fernando lozano;Est. Completi on: 12/09/19 12;Indic ation: - (-5) Not Available Not Available Not Available Novolog U-100 Insulin aspart 40u am and pm 02/12 completed novalog ;Re corded Status: Recorded on: 05/04/20 12 11:38AM; Disconti nued Status: Disconti nued on: 02/13/20 14 3:45PM;U ser: luis fernando lozano;Est. Completi on: 01/30/20 13;Indic ation: - (-5);Amanda nted: 05/04/20 12 Not Available Not Available Not Available Doxycycli ne 1 bid 04/08 completed doxcycli ne 100mg;Re corded Status: Recorded on: 07/15/19 12 3:38PM;D iscontin ued Status: Disconti nued on: 04/08/20 12 3:32PM;U ser: luis fernando lozano;Est. Completi on: 07/25/19 12;Indic ation: - (-5);Amanda nted: 07/15/19 12 Not Available Not Available Not Available amlodipin e 10 mg-benaze pril 40 mg capsule TAKE 1 CAPSULE BY MOUTH ONCE DAILY active Not Available Not Available No t Available Januvia 100 mg tablet take 1 tablet (100 mg) by oral route once daily for 30 days 12/04 completed Januvia 100 mg oral tablet;R ecorded Status: Recorded on: 11/27/19 15 10:40AM; Disconti nued Status: Disconti nued on: 12/05/19 16 9:55AM;U ser: coreen; Est. Completi on: 02/25/20 15;Print ed: 11/27/19 15 Not Available Not Available Not Available Janumet 50 mg-1,000 mg tablet TAKE 1 TABLET BY MOUTH TWICE DAILY active Not Available Not Available No t Available FreeStyle Lite Strips Use as directed to check blood glucose daily. 2023 active Not Available Not Available Not Avai lable oxycodone 10 mg tablet TAKE 1 TABLET BY MOUTH EVERY 4 HOURS NEEDED FOR PAIN 02/23 completed Not Available Not Available Not Available Victoza 0.6 mg/0.1 mL (18 mg/3 mL) subcutane ous pen injector inject 0.2 millilit er (1.2 mg) by subcutan eous route once daily for 30 days 02/12 completed Replaced /Retired Drug 0.6 mg/0.1 mL (18 mg/3 mL) subcutan eous pen injector ;Recorde d Status: Recorded on: 07/15/19 12 3:38PM;D iscontin ued Status: Disconti nued on: 02/13/20 14 3:45PM;U ser: luis fernando lozano;Est. Completi on: 10/13/19 12;Indic ation: Type 2 Diabetes Mellitus - () Not Available Not Available Not Available Amandoiglyz e XR 5 mg-1,000 mg tablet,ex tended release take 1 tablet by oral route bid 02/12 completed Vicenta ze XR 5-1,000 mg oral tablet, ER multipha se 24 hr;Recor ded Status: Recorded on: 07/15/19 12 3:38PM;D iscontin ued Status: Disconti nued on: 02/13/20 14 3:45PM;U ser: luis fernando lozano;Est. Completi on: 07/09/19 13 Not Available Not Available Not Available Invokana 100 mg tablet 07/26 completed Not Available Not Available Not Available Victoza 3-Nadir 0.6 mg/0.1 mL (18 mg/3 mL) subcutane ous pen injector inject 0.3 millilit er (1.8 mg) by subcutan eous route once daily 02/23 completed Not Available Not Available Not Available Unifine Pentips Plus 32 gauge x 5/32 needle 02/23 completed Not Available Not Available Not Available potassium chloride ER 20 mEq tablet,ex tended release TAKE 1 TABLET BY MOUTH ONCE DAILY active Not Available Not Available No t Available Trulicity 1.5 mg/0.5 mL subcutane ous pen injector INJECT 1.5 MG SUBCUTAN EOUSLY ONCE A WEEK 02/23 completed Not Available Not Available Not Available Trulicity 0.75 mg/0.5 mL subcutane ous pen injector INJECT 0.75 MG EVERY WEEK BY SUBCUTAN EOUS ROUTE. 06/19 completed Not Available Not Available Not Available Basaglcurtis KwikPen U-100 Insulin 100 unit/mL (3 mL) subcutane ous INJECT 20 UNITS SUBCUTAN EOUSLY AT BEDTIME NIGHTLY 06/18 completed Patient reports she does not use Not Available Not Available Not Available Kerendia 20 mg tablet TAKE 1 TABLET BY MOUTH ONCE DAILY active Not Available Not Available No t Available Mounjaro 5 mg/0.5 mL subcutane ous pen injector INJECT 1 PEN SUBCUTAN EOUSLY ONCE A WEEK active Not Available Not Available No t Available Mounjaro 2.5 mg/0.5 mL subcutane ous pen injector INJECT 1 MG SUBCUTAN EOUSLY ONCE A WEEK active Not Available Not Available No t Available Vitals Date Recorded Body height Body temperature Heart rate Oxygen saturation Respiratory rate Pain severity - 0-10 verbal numeric rating [Score] - Reported Systolic And Diastolic Provider Name and Address Organization Details Last Updated DateTime 4 165.1 cm 97.9 [degF] 76 /min 91 % 20 /min 0 150/98 mm[Hg] Nini Willis [place] - [facility] 4 15:19:06 Date Recorded Oxygen saturation Provider Name and Address Organization Details Last Updated DateTime 06/19/2024 93 % DIALLO Araujo [address], [place], [address], [place] - [facility] 06/19/2024 23:25:07 Date Recorded Body height Heart rate Oxygen saturation Systolic And Diastolic Provider Name and Address Organization Details Last Updated DateTime 06/19/2024 165.1 cm 88 /min 88 % 124/76 mm[Hg] Mary Kamara [place] - [facility] 06/19/2024 14:06:59 Date Recorded Body height Body temperature Heart rate Oxygen saturation Respiratory rate Pain severity - 0-10 verbal numeric rating [Score] - Reported Systolic And Diastolic Provider Name and Address Organization Details Last Updated DateTime 4 165.1 cm 97.4 [degF] 69 /min 96 % 18 /min 0 118/78 mm[Hg] Nini Willis [place] - [facility] 4 13:28:10 Date Recorded Body height Heart rate Oxygen saturation Provider Name and Address Organization Details Last Updated DateTime 08/10/2024 165.1 cm 73 /min 94 % Mary Kamara [facility] 08/10/2024 13:42:46 Date Recorded Body height Body mass index (BMI) Body weight Body temperature Heart rate Oxygen saturation Respiratory rate Pain severity - 0-10 verbal numeric rating [Score] - Reported Systolic And Diastolic Provider Name and Address Organization Details Last Updated DateTime 2 165.1 cm 41.9 kg/m2 165897. 28 g 97.7 [degF] 70 /min 94 % 18 /min 0 154/80 mm[Hg] Nas Muniz [place] - [facility] 2 13:36:32 Social History Question Answer Notes LastModified by Organizat ion Details LastModified Time Tobacco Smoking Status Never Smoker [place] [facility] 07[facility]17[facility]2016 16:23:23 Do You Have An Advance Directive? Yes Abby Information not available 02/08/2020 Are You Blind Or Do You Have Difficulty Seeing? No [email or web address] Information not available 07/17/2016 What Is Your Level Of Caffeine Consumption? Occasional Information not available 02/08/2020 Are You Deaf Or Do You Have Serious Difficulty Hearing? No [email or web address] Information not available 07/17/2016 What Type Of Diet Are You Following? REGULAR Information not available 04/05/2017 Which Illicit Or Recreational Drugs Have You Used? Denies Information not available 02/08/2020 Have There Been Any Changes To Your Family Or Social Situation? No [email or web address] Information no t available 02/23/2022 What Is The Fluoride Status Of Your Home? Unknown Information not available 02/23/2022 Hard Of Hearing Or Deaf In One Or Both Ears? No [email or web address] Information not available 04/05/2017 Legally Blind In One Or Both Eyes? No [email or web address] Information no t available 04/05/2017 Live Alone Or With Others? With Others Information not available 11/01/2017 What Was The Date Of Your Most Recent Tobacco Screening? 06/19/2024 [email or web address] Information not available 06/19/2024 What Is Your Relationship Status? Unknown [email or web address] Information not available 11/01/2017 Seat Belts Used Routinely Yes Information not available 02/08/2020 Do You Have Smoke And Carbon Monoxide Detectors In Your Home? Yes [email or web address] Information not available 02/23/2022 Are You Passively Exposed To Smoke? No [email or web address] Information no t available 02/23/2022 How Much Tobacco Do You Smoke? No [email or web address] Information not available 11/01/2017 Has Tobacco Cessation Counseling Been Provided? Yes [email or web address] Information not available 02/23/2022 On What Date Was Tobacco Cessation Counseling Provided? 06/19/2024 Information not available 06/19/2024 How Many Years Have You Smoked Tobacco? 0 [email or web address] Information not available 11/01/2017 Do You Have Difficulty Walking Or Climbing Stairs? No Information not available 07/17/2016 Sex: Female Functional Status Question Answer Note LastModified by Organizat ion Details LastModified Time Do you use any illicit or recreational drugs? No [email or web address] Information not available 02/23/2022 Do you or have you ever used any other forms of tobacco or nicotine? No [email or web address] Information not available 02/23/2022 What is your level of alcohol consumption? None [email or web address] Information not available 04/05/2017 Are you currently employed? No Information not available 02/08/2020 Do you have transportation difficulties? No Information not available 02/23/2022 Are you able to walk independently without assistance or assistive devices? YESWOREST [email or web address] Information not available 11/01/2017 Do you have difficulty doing errands alone? No [email or web address] Information not available 07/17/2016 Are you able to care for yourself independently? Yes Information not available 04/05/2017 Do you have difficulty dressing, bathing, grooming, or toileting? No [email or web address] Information not available 07/17/2016 What is your exercise level? Occasional [email or web address] Information not available 04/05/2017 Mental Status Question Answer Note LastModified by Organization D etails LastModified Time Do you have difficulty concentrating, remembering or making decisions? No [email or web address] Information no t available 07/17/2016 Family History Relationship Description Onset Age of this Age Resolved Age Notes LastModified by Organization Details LastModified Time Mother Diabetes mellitus [email or web address] Not available 2016 16:23:03 Mother Heart disease [email or web address] Not available 2016 16:23:17 Father Heart disease [email or web address] Not available 2016 16:23:17 Medical History Condition Response Diabetes Y Hypertension Y Gynecological History Statement/Question Response Abnormal Pap N Date of LMP 03/18/2023 Menses Monthly N Date of Last Pap Smear Current Control Method None Most Recent Mammogram LMP Unknown Obstetrics History GPAL:G 0 P 0 0 0 0 Immunizations Vaccine Type Date Status Note Provider Name and Address Organization Details Recorded Time pneumococcal polysaccharide PPV23 020 completed ERI Fonutain - [facility] 02/08/2020 17:28:03 Influenza, split virus, quadrivalent, preservative 018 cancelled patient objection Not Available [facility] 06/10/2019 03:54:57 Tdap 012 completed Not Available [facility] 06/29/2023 13:15:48 Past Encounters Encounter ID Performer Location Encounter Start Date Encounter Closed Date Diagnosis/Indication Diagnosis SNOMED-CT Code Diagnosis ICD10 Code Diagnosis IMO Codes Diagnosis Note [id number] Sadie Riley [facility] [address] [address] 07/17/2016 16:14:57 07/20/2016 07:59:22 Acute sinusitis 38717417 J01.90 Cough 95521789 R05 Nausea 325249975 R11.0 [id number] Sarahi Valentine [facility] [address] [address] 04/05/2017 15:16:44 04/05/2017 17:16:56 Body mass index 40+ - severely obese 498229514 Z68.41 Bronchitis 93082773 J40 Upper resp iratory infection 39479136 J06.9 [id number] Sadieelizabet Riley [address] [place] [address] 07/26/2017 14:12:08 07/26/2017 15:35:52 Diabetes mellitus 70023064 E11.9 Hypertensive disorder 38 006436 I10 Amputated foot 316985969 Z89.439 Immunization refused 275 980237 Z28.9 Body mass index 40+ - severely obese 556752301 Z68.41 Hyperlipidemia 73091503 E78.5 Fatigue 50277798 R53.83 Depressive disorder 3548 9007 F32.9 [id number] Sadie Osvaldo [address] [place] [address] 08/31/2017 12:46:04 08/31/2017 13:49:57 Diabetes mellitus 54116151 E11.9 Anxiety 30102281 F41.9 Depressive disorder 3548 9007 F32.9 Hyperlipidemia 53496696 E78.5 Body mass index 40+ - severely obese 595631371 Z68.41 [id number] Sadieelizabet Riley[address] [place] [address] 11/01/2017 12:36:57 11/01/2017 13:33:45 Diabetes mellitus 98168081 E11.9 Hypertensive disorder 38 274160 I10 Hyperlipidemia 61983879 E78.5 Amputated foot 116909974 Z89.439 Cerebrovas cular accident 711914054 I63.9 Depressive disorder 3548 9007 F32.9 [id number] Kyle Lee MD [address] [place] [address] 04/29/2018 12:48:44 04/29/2018 14:31:16 Amputated foot 486374581 Z89.439 Hypertensive disorder 38 332923 I10 Hyperlipidemia 50554781 E78.5 Uncontroll ed type 2 diabetes mellitus 894214561 E11.65 Possible 67033 4004 Z32.00 Diabetes mellitus 911118 09 E11.9 [id number] Sohail Manzo MD [address] [place] [address] 02/08/2020 15:37:13 02/28/2020 15:32:30 Diabetes mellitus 97322549 E11.69 Hypertensive disorder 38 892515 I10 Hyperlipidemia 23821452 E78.5 Depressive disorder 3548 9007 F32.9 Body mass index 40+ - severely obese 471704581 Z68.41 Morbid obesity 041851322 E66.01 Administra tion of pneumococcal vaccine 15117977 Z23 Neuropathy due to diabetes mellitus 396855995 E11.40 Hepatitis C screening 41 6082294 Z11.59 Uncontroll ed type 2 diabetes mellitus 433234555 E11.65 [id number] Otto Desai MD [address] 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 662670930 G54.6 [id number] Margot Gallardo [address] [place] [address] 06/18/2023 15:07:11 06/18/2023 15:53:56 Diabetes mellitus 54438155 E11.69 Hypertensive disorder 38 605635 I10 Hyperlipidemia 16838823 E78.5 Orthopnea 41826245 R06.0 1 [id number] Margot Gallardo [address] [place] [address] 06/29/2023 13:14:58 06/29/2023 14:21:49 Uncontrolled type 2 diabetes mellitus 285695177 E11.65 Tremor 46401263 R25.1 Orthopnea 53997307 R06.0 1 Hyperlipidemia 27255491 E78.5 B-type moses riuretic peptide above reference range 2272112672 11538 R89.1 [id number] Rufino Butler PA-C [facility] [address] [place] [address] 06/19/2024 13:39:01 06/19/2024 15:29:17 Seen by primary care physician 1659253849 109 Z76.89 Type 2 sadaf betes mellitus 11912364 E11.59 PT instructed to watch for high and/or low blood sugars. Monitor fingerstic k BS at home and try to keep a log. Bring log of blood sugar readings to next appointmen t appointmen t if able. Any concerns please call. Cautioned symptoms of hypoglycem ia and advised to keep glucose on hand. Avoid excess carbs and sugary drinks. Attempt to get daily exercise or follow an exercise plan as discussed. Stressed the importance of taking medication s as prescribed . Endocrine/ metabolic screening 117174943 Z13.228 Check labwork, further diagnositi c decision making pending results. Amputated left lower limb below knee 516706045 Z89.512 Stented co ronary artery 603349995 Z95.5 following with cardiology , st E Hypertensive disorder 38 636152 I10 Check BP at home. Try to keep daily diary. If SBP >170 or if DBP > 100 call clinic, MD, or seek help. Dangers of high BP discussed. I also recommende d to reduce dietary sodium intake to less than 100 mEq (2.3 g of sodium or 6 g of sodium chloride)/ day. Discussed weight loss, DASH diet and exercise program as lifestyle changes to help control BP. Cautioned to watch for sxs such as chest pain, vision changes, NAIR, or SOA and alert clinic or ER if present. [id number] WALTER Araujo [facility] [address] [place] [address] 08/10/2024 13:30:55 08/10/2024 15:06:42 Dyspnea on exertion 44061693 R06.09 Acute hypo xemic respiratory failure 768135410 J96.01 improved Hospital i npatient stay within past 30 days 7668055978 106 Z76.89 Diastolic heart failure 008539786 I50.30 Diabetes mellitus 761025 09 E11.9 Neuropathy due to diabetes mellitus 576246230 E11.40 Health Concerns Section Related Observation LastModified by Organization Detai ls LastModified Time None Recorded Concern Status LastModified by Organization Details LastModified Time None Recorded Advance Directives Directive Y: abby Payers Insurance Date Sequence Insurance Name Policy Number Policy Blanco Covered Member ID Blanco Member ID Guarantor Name 03/30/2025 1 [employer] (MEDICARE REPLACEMENT/AD VANTAGE - [place]) [id number] Ju[place] Felipe [id number] Juana Felipe 09/23/2016 2 UNSPECIFIED REMIT PAYOR Juana Felipe 03/30/2025 2 [facility]/TRADITIONA L Juana N Felipe [id number] Juana Felipe 06/19/2024 [facility] Juana Felipe [id number] Juana Felipe 06/19/2024 1 [place]MED[place]ARE) Juana N Felipe [id number] Juana Felipe 03/30/2025 [employer] [place] [facility] (MEDICARE) Juana N Felipe [id number] Juana Felipe 03/30/2025 [place] [facility] [place] Juana N Felipe [id number] Juana Felipe Notes Date Note Type Note Provider Name and Address Organization Details Recorded Time 02/23/2022 text/html Pt presents to change physicians, f/u DM2 and associated comorbidities and controlled med f/u. Pt's A1c is 6.8% today; other labs from prior office pending receipt. Pt states compliance with meds and diet. Pt states good control of neuropathic pain with Lyrica; states hydrocodone written for left phantom limb pain. States good efficacy from hydrocodone. Rx's reviewed. BPs well controlled with current regimen; Pt tolerating same with no changes. Pt states mood sx well controlled with current regimen; not currently following with counseling. Otto Desai MD [facility] [address], [place], [address], [facility] - [facility] 02/23/2022 15:19:01 06/18/2023 text/html ROS as noted in the HPI Patient presents to establish care for tx of DM, HTN, and HLD. Patient reports fasting blood glucose readings of upper 100s to 200s . Patient states she has been out of metoprolol, glipizide, and HCTZ for approx. 1 week. Patient reports orthopnea. Patient reports she sleeps with 3-4 pillows. Does endorse intermittent swelling to bilateral legs. Patient reports headaches that occur approx. 4 times per week. Patient reports last eye exam was approx. 3 years ago. Denies polyuria, polydipsia, chest pain, n/v/d, fever, and syncope. Marogt Singhie, LICENSED MASSAGE THERAPIST [address], [place], [address], [place] [facility] 06/18/2023 16:54:23 06/29/2023 text/html ROS as noted in the HPI Patient presents to discuss abnormal lab results from lab drawn on 06/18/23. Patient reports fasting glucose readings of approx. 200. Patient reports she is compliant with medication regimen. Endorses polydipsia, headaches, edema to lower extremties, orthopnea, and dizziness. Patient reports episodes of mini hull . Patient reports that during these episodes her eye droops , hand tremors, and slurred speech. Patient states episodes last most of the day . Patient states the episodes have occurred approx. 4 times in the past month. Patient states the most recent episode occurred a couple weeks ago . Patient reports she has a history of mini strokes . Denies fever, polyuria, chest pain, SoB, vision changes, vomiting, diarrhea, loss of bowel/bladder control, and syncope. Margoterich Atkinsssie, LICENSED MASSAGE THERAPIST [address], [place], [address], [place] [facility] 07/08/2023 13:46:50 06/19/2024 text/html Patient presents to office accompanied by . Patient is new patient to establish care, former patient of Dr. Ghosh. Patient has history of DMII, has BTK left amputation. Patient also has cardiac hx, had an MD April 2024. Patient would like to discuss restarting Mounjaro, stopped on own due to nausea. Reports home FBS have been well controlled.Following with cardiology, St E.BTK amputation occured 3 years ago, currently having prosthesis resized.Has had fenofibrate stopped and atorvastatin increased following MD.Pt denies chest pain, SOA, difficulty eating or drinking, changes in bathroom habits, syncope/presyncope, or any other concerns. Rufino Butler PA-C [address], [place], [address], [place] - [facility] 06/19/2024 23:29:15 08/10/2024 text/html Emergency Depart ment Follow-Up RecordReported by PatientEmergency Room Follow-Up RecordFor discharge information, patient reportsname of hospital/urgent care patient was seen: ([facility]),patient presented to hospital/urgent care on or around: actual date 07/27/24,patient presented to hospital for treatment of: (shortness of air),treatment received by hospital/urgent care: (oxygen therapy, diuretics),patient's condition has: improved, andhospital records available at the time of this visit: yes. Patient states experienced shortness of air on 07/27, was evaluated at [facility], oxygen levels measured 50-60%RA, patient was placed on oxygen 18LPM, states intubation was discussed, patient states discharged with oxygen at home. Patient states sxs have improved since discharge.Reports recent hospitalization [facility] 3rd hospital course since [facility] much better today. Oxygen can dip with activity on room air. Reasons for hospitalization:CAP right lungAcute on chronic heart failure with preserved ejection fraction (HFpEF)CAD with anginaacute resp failure wiht hypoxiamood disorderhx of strokeDMIIstatus post transmetatarsal amputation right footHTN SummaryAdmitted 07/27 with acute repiratory failure. CAP treated with rocephin and zithromax. CHF exacerbation tx lasix. continue lasix 20mg QD. home oxygen at discharge, orders for outpatient PFT ans sleep study No other symptoms or concerns reported. Rufino Butler PA-C [address], [place], [address], [place] [facility] 08/10/2024 22:46:52 OBGyn Episode No OBEpisode recorded.
--- OUTSIDE RECORDS SUMMARY | 2025-05-10 11:51 | XMS_ITS | Clinical Summary ---
Author Organization Healthcare Address [address] [place] [address] Care Team Providers Care Piece Goods Packer Name Role Phone Unavailable Primary Care Provider Unavailabl e Social History Tobacco Use Types Packs/Day Years Used Date Smoking Tobacco: Never Assessed Comments Unknown Sex and Gender Information Value Date Recorded Sex Assigned at Not on file Legal Sex Female 8:10 PM EDT Gender Identity Not on file Sexual Orientation Not on file Plan of Treatment Health Maintenance Due Date Last Done Comments [facility]-Depression Screening 1975 [facility]-Infant/Child/Adol SDOH Screenings 1975 [facility]- SDOH Screenings 1993 [facility]-Adult SDOH Screenings 1993 [facility]-DTaP,Tdap,and Td Vaccine s (1 - Tdap) 1994 [facility]-Hepatitis B Vaccines (1 of 3 - 19+ 3-dose series) 1994 [facility]-Pap Smear 1996 [facility]-Cervical Cancer Screening 2005 [facility]-HPV/Cotest 2005 CT Colonography 2020 Colonoscopy 2020 FIT-DNA 2020 FIT 2020 FOBT 2020 Sigmoidoscopy 2020 [facility]-Colorectal Cancer Screening 2020 [id number] Vaccine ( 20 25-26 season) 2025 [facility]-Influenza Vaccine (#1) 2025 [facility]-Zoster Vaccines (1 of 2) 2025 HPV Vaccines (No Doses Required) Completed [facility]-HIB Vaccines Aged Out No longer e ligible based on patient's age to complete this topic [facility]-Hepatitis A Vaccines Aged Out No longer eligible based on patient's age to complete this topic [facility]-IPV Vaccines Aged Out No longer e ligible based on patient's age to complete this topic [facility]-Pneumococcal Vaccine: Pediatrics (0 to 5 Years) and At-Risk Patients (6 to 49 Years) Aged Out No long er eligible based on patient's age to complete this topic [facility]-Rotavirus Vaccines Aged Out No lo nger eligible based on patient's age to complete this topic
[2025-05-11 09:29] LABS: Hepatitis B Surface Antigen Negative (Negative)
== END 2025-05-09 23:59 | disposition home or self-care (01) ==
LOC: LAB.DROPOF 05-10 10:31
PROVIDERS: PCP Family Medicine; Visit Provider Family Medicine
DX: E11.40 Type 2 diabetes mellitus with diabetic neuropathy, unspecified (principal); E78.49 Other hyperlipidemia; I10 Essential (primary) hypertension; Z11.59 Encounter for screening for other viral diseases
CPT/HCPCS: 80053; 80061; 85025; 86803; 87340; 87389